=== PATIENT | female | born 1940 | race Caucasian/White ===

== ENCOUNTER 2017-07-15 09:43 | Inpatient (IN) | payer MEDICARE ==
[~2017-07-15] VITALS: Ht 157.5 cm; Wt 131.8 kg
[~2017-07-15 09:43] MED LIST: ALB0.5UD IH; ALLO100T15 PO; ASPI-611 PO; DICY10CA88 PO; DIPH25CA83 PO; ESTR0.5T PO; FURO-150 PO; GABA-338 PO; HYDR-569 PO; INSU100V12 SQ; INSU100V36 SQ; LEVO125T8 PO; LOPE-155 PO; LOSA25TA96 PO; METH500T4 PO; OMEP20CA10 PO; SIMV80TA2 PO; TRAM50TA2 PO; VIT1TABL50 PO
[2017-07-15] MEDS ORDERED: CefTRIAXone 2gm/D5W 50ml ADVTG 50 ML IV ONE (10:25)
[2017-07-15] MEDS ORDERED: ipratropium/albuterol 3ml nebule NEB ONE (10:25)
[2017-07-15 10:44] LABS: CLARITY,URINE SLIGHTLY CLOUDY (Clear); COLOR,URINE YELLOW (Yellow); GLUCOSE, URINE 100 mg/dl (Neg); KETONES,URINE NEGATIVE (Neg); LEUKOCYTE ESTERASE ,URINE NEGATIVE (Neg); NITRITES, URINE NEGATIVE (Neg); OCCULT BLOOD,URINE MODERATE (Neg); PROTEIN,URINE >=300 mg/dl (Neg)
[2017-07-15 10:45] LABS: UA COLLECTION TYPE CLN CATCH MIDSTREAM
[2017-07-15 10:50] LABS: BACTERIA,URINE FEW /HPF (Neg); MUCUS STRANDS FEW /LPF (Neg); RBC,URINE 0-2 /HPF (0-2); SQUAMOUS EPITHELIAL CELL,UR MANY /LPF (FEW); TRANSITIONAL EPI CELLS,URINE FEW /HPF; WBC,URINE 0-4 /HPF (0-4)
[2017-07-15] MEDS ORDERED: azithromycin 250mg tablet PO ONE (10:55)
[2017-07-15 11:06] LABS: BASOPHILS % (AUTO) 0.3 % (0-1); EOSINOPHILS % (AUTO) 0.4 % (0-6); HEMATOCRIT 30.7 % (35.0-45.0); HEMOGLOBIN 10.3 g/dl (12.0-16.0); LYMPHOCYTES # (AUTO) 0.9 X10'3 (1.1-4.8); LYMPHOCYTES % (AUTO) 22.7 % (21-51); MEAN CORPUSCULAR HEMOGLOBIN 33.3 PG (27.0-31.0); MEAN CORPUSCULAR HGB CONC 33.6 % (33.0-36.5); MEAN CORPUSCULAR VOLUME 99.2 FL (78-98); MONOCYTES # (AUTO) 0.3 X10'3 (0-0.9); MONOCYTES % (AUTO) 8.9 % (2-12); NEUTROPHILS # (AUTO) 2.6 X10'3 (1.8-7.7); NEUTROPHILS % (AUTO) 67.7 % (42-75); PLATELET COUNT 75 X10'3 (140-440); RED BLOOD COUNT 3.09 X10'6 (4.20-5.60); WHITE BLOOD COUNT 3.8 X10'3 (4.5-11.0)
[2017-07-15 11:20] LABS: ALANINE AMINOTRANSFERASE 67 U/L (12-78); ALBUMIN 2.4 G/DL (3.4-5.0); ALBUMIN/GLOBULIN RATIO 0.6 (1.1-1.5); ALKALINE PHOSPHATASE 121 IU/L (46-116); ANION GAP 6 (8-16); ASPARTATE AMINO TRANSFERASE 122 U/L (10-37); BILIRUBIN,TOTAL 1.4 MG/DL (0.1-1.0); BLOOD UREA NITROGEN 25 MG/DL (7-18); BUN/CREATININE RATIO 8.9 (6.6-38.0); CALCIUM 8.1 MG/DL (8.5-10.1); CHLORIDE 99 MMOL/L (99-107); CREATININE 2.81 MG/DL (0.40-0.90); GLUCOSE 101 MG/DL (70-104); MAGNESIUM 1.8 MG/DL (1.5-2.4); POTASSIUM 3.7 MMOL/L (3.5-5.1); SODIUM 134 MMOL/L (135-145); TOTAL PROTEIN 6.3 G/DL (6.4-8.2); eGFR 16 ML/MIN
[2017-07-15] MEDS ORDERED: dexamethasone sod phosphate 10mg/ml inj IV STA (12:30)
[2017-07-15] MEDS ORDERED: ondansetron/PF 4mg/2ml inj IV ONE (12:40)
[2017-07-15] MEDS ORDERED: morphine 5 MG/ML injection IV ONE (12:45)
[2017-07-15] MEDS ORDERED: acetaminophen 325mg tablet PO ONE (13:00)
[2017-07-15] MEDS ORDERED: ceftazidime 1000mg in D5W 50ml 50 ML IV SCH (14:00)
[2017-07-15] MEDS ORDERED: traMADol 50MG tablet PO PRN (14:00)
[2017-07-15] MEDS ORDERED: insulin Lispro (HumaLOG) vial - multi-dose SQ PRN (14:00)
[2017-07-15] MEDS ORDERED: dicyclomine 10 MG capsule PO PRN (14:00)
[2017-07-15] MEDS ORDERED: vancomycin/NS 1 GM ADD-VANTAGE 250 ML IV ONE (14:00)
[2017-07-15] MEDS ORDERED: HYDROcodone/acetaminophen 5mg/325mg tablet PO PRN (14:00)
[2017-07-15] MEDS: K, MAG and/or Phos replacement - Verify level? MC SCH (14:05)
[2017-07-15] MEDS ORDERED: sodium phosphate inj. 30 MMOL in dextrose 5%-water 250 ML IV PRN (14:05)
[2017-07-15] MEDS ORDERED: Neutra Phos packet PO PRN (14:05)
[2017-07-15] MEDS ORDERED: sodium phosphate inj. 15 MMOL in dextrose 5%-water 150 ML IV PRN (14:05)
[2017-07-15] MEDS ORDERED: magnesium 4gm in 100ml NS 100 ML IV PRN (14:05)
[2017-07-15] MEDS ORDERED: magnesium hydroxide 30ml (MOM) UD suspension PO PRN (14:05)
[2017-07-15] MEDS ORDERED: magnesium 2GM in 50ml NS 50 ML IV PRN (14:05)
[2017-07-15] MEDS ORDERED: magnesium Cl slow-release 64mg tablet PO PRN (14:05)
[2017-07-15] MEDS ORDERED: ipratropium/albuterol 3ml nebule NEB PRN (14:05)
[2017-07-15] MEDS ORDERED: potassium Cl 20 mEq SR tablet PO PRN ×2 (14:05)
[2017-07-15] MEDS: levoFLOXACIN 250mg tablet PO SCH (14:31)
[2017-07-15] MEDS ORDERED: cefTAZidime inj. 1 GM in normal saline 100ml IV soln 100 ML IV SCH (14:51)
[2017-07-15] MEDS ORDERED: oseltamivir phos 75mg capsule PO SCH (15:00)
[2017-07-15] MEDS ORDERED: normal saline 1000ml 250 ML IV PRN (15:12)
[2017-07-15] MEDS ORDERED: LIDOcaine 1% (10mg/ml) 2ml vial SQ ONE (15:15)
[2017-07-15] MEDS ORDERED: heparin 1,000 units/ml 10ml inj IV ONE (15:15)
[2017-07-15] MEDS: cefTAZidime inj. 1 GM in normal saline 100ml IV soln 100 ML IV SCH (16:19)
[2017-07-15] MEDS: HYDROcodone/acetaminophen 5mg/325mg tablet PO PRN ×2 (16:20→20:59)
[2017-07-15] MEDS: oseltamivir 30mg capsule PO SCH (17:29)
[2017-07-15] MEDS: gabapentin 300mg capsule PO SCH (20:58)
[2017-07-15] MEDS: heparin, porcine 5000 units/ml vial SQ SCH (21:04)
[2017-07-15 23:00] VITALS: BP 151/56
[2017-07-16] MEDS: HYDROcodone/acetaminophen 5mg/325mg tablet PO PRN ×4 (01:25→21:06)
[2017-07-16 03:00] VITALS: BP 144/86
[2017-07-16 05:56] LABS: HEMATOCRIT 28.3 % (35.0-45.0); HEMOGLOBIN 9.5 g/dl (12.0-16.0); MEAN CORPUSCULAR HEMOGLOBIN 33.4 PG (27.0-31.0); MEAN CORPUSCULAR HGB CONC 33.5 % (33.0-36.5); MEAN CORPUSCULAR VOLUME 99.7 FL (78-98); MEAN PLATELET VOLUME 8.3 FL (7.4-10.4); PLATELET COUNT 67 X10'3 (140-440); RED BLOOD COUNT 2.84 X10'6 (4.20-5.60); RED CELL DISTRIBUTION WIDTH 14.1 % (11.5-14.5); WHITE BLOOD COUNT 2.7 X10'3 (4.5-11.0)
[2017-07-16 06:00] VITALS: BP 115/62
[2017-07-16 06:12] LABS: INR 1.1 INR; PARTIAL THROMBOPLASTIN TIME 30 SECONDS (22-32); PROTHROMBIN TIME 11.5 SECONDS (9.0-12.0)
[2017-07-16 06:24] LABS: ALANINE AMINOTRANSFERASE 53 U/L (12-78); ALBUMIN 2.2 G/DL (3.4-5.0); ALBUMIN/GLOBULIN RATIO 0.6 (1.1-1.5); ALKALINE PHOSPHATASE 109 IU/L (46-116); ANION GAP 8 (8-16); ASPARTATE AMINO TRANSFERASE 82 U/L (10-37); BLOOD UREA NITROGEN 35 MG/DL (7-18); BUN/CREATININE RATIO 10.6 (6.6-38.0); CALCIUM 7.7 MG/DL (8.5-10.1); CHLORIDE 98 MMOL/L (99-107); GLUCOSE 175 MG/DL (70-104); PHOSPHORUS 4.8 MG/DL (2.3-4.5); POTASSIUM 4.2 MMOL/L (3.5-5.1); SODIUM 135 MMOL/L (135-145); TOTAL CARBON DIOXIDE 28.8 MMOL/L (24-32); eGFR 14 ML/MIN
[2017-07-16 07:09] LABS: HEMOGLOBIN A1C 5.8 % (4.5-6.2)
[2017-07-16 07:24] LABS: ANISOCYTOSIS 1+; PLATELET ESTIMATE DECREASED; TOTAL CELLS COUNTED 100
[2017-07-16] MEDS: K, MAG and/or Phos replacement - Verify level? MC SCH (08:00)
[2017-07-16] MEDS: cefTAZidime inj. 1 GM in normal saline 100ml IV soln 100 ML IV SCH (08:14)
[2017-07-16] MEDS: levoTHYROXINE 125mcg tablet PO SCH (08:15)
[2017-07-16] MEDS: gabapentin 300mg capsule PO SCH ×3 (08:15→21:06)
[2017-07-16] MEDS: pantoprazole 40mg Tablet.DR PO SCH (08:15)
[2017-07-16] MEDS: heparin, porcine 5000 units/ml vial SQ SCH ×2 (08:16→20:00)
[2017-07-16] MEDS ORDERED: LIDOcaine 1% (10mg/ml) 2ml vial SQ ONE (09:00)
[2017-07-16] MEDS ORDERED: heparin 1,000 units/ml 10ml inj IV ONE (09:00)
[2017-07-16] MEDS: ondansetron/PF 4mg/2ml inj IV PRN ×2 (10:04→16:34)
[2017-07-16 11:00] VITALS: BP 145/77
[2017-07-16 15:00] VITALS: BP 136/81
[2017-07-16] MEDS: oseltamivir 30mg capsule PO SCH (15:02)
[2017-07-16 16:27] LABS: CLARITY,URINE CLOUDY (Clear); GLUCOSE, URINE 250 mg/dl (Neg); KETONES,URINE TRACE mg/dl (Neg); LEUKOCYTE ESTERASE ,URINE NEGATIVE (Neg); NITRITES, URINE NEGATIVE (Neg); OCCULT BLOOD,URINE LARGE (Neg); PROTEIN,URINE >=300 mg/dl (Neg)
[2017-07-16 16:31] LABS: COLOR,URINE DARK YELLOW (Yellow); UA COLLECTION TYPE FOLEY CATH
[2017-07-16 16:40] LABS: BACTERIA,URINE FEW /HPF (Neg); RBC,URINE 50-100 /HPF (0-2); WBC,URINE 0-4 /HPF (0-4)
[2017-07-16 16:41] LABS: COARSE GRANULAR CAST 0-3 /LPF (NEGATIVE); HYALINE CASTS 0-3 /LPF (NEGATIVE); MUCUS STRANDS FEW /LPF (Neg); SQUAMOUS EPITHELIAL CELL,UR FEW /LPF (FEW); TRANSITIONAL EPI CELLS,URINE FEW /HPF
[2017-07-16 19:00] VITALS: BP 155/82
[2017-07-16] MEDS ORDERED: glucagon, human recombinant 1mg kit SUBCUT PRN (21:45)
[2017-07-16] MEDS ORDERED: dextrose ORAL solution 15 GM/59 ML bottle PO PRN ×2 (21:45)
[2017-07-16] MEDS ORDERED: dextrose 50%-water 50ml dispensing syringe IV PRN ×2 (21:45)
[2017-07-16] MEDS: Insulin Detemir pen SQ SCH (22:03)
[2017-07-16 23:00] VITALS: BP 132/60
[2017-07-17 03:00] VITALS: BP 109/63
[2017-07-17 05:30] VITALS: BP 124/58
[2017-07-17] MEDS: HYDROcodone/acetaminophen 5mg/325mg tablet PO PRN ×3 (05:35→17:06)
[2017-07-17 05:36] LABS: INR 1.1 INR; PARTIAL THROMBOPLASTIN TIME 27 SECONDS (22-32); PROTHROMBIN TIME 11.4 SECONDS (9.0-12.0)
[2017-07-17 05:40] LABS: BASOPHILS % (AUTO) 0.2 % (0-1); EOSINOPHILS % (AUTO) 0.9 % (0-6); HEMATOCRIT 27.9 % (35.0-45.0); HEMOGLOBIN 9.3 g/dl (12.0-16.0); LYMPHOCYTES % (AUTO) 22.7 % (21-51); MEAN CORPUSCULAR HEMOGLOBIN 33.3 PG (27.0-31.0); MEAN CORPUSCULAR HGB CONC 33.4 % (33.0-36.5); MEAN CORPUSCULAR VOLUME 99.9 FL (78-98); MEAN PLATELET VOLUME 8.4 FL (7.4-10.4); MONOCYTES # (AUTO) 0.4 X10'3 (0-0.9); MONOCYTES % (AUTO) 8.4 % (2-12); NEUTROPHILS % (AUTO) 67.8 % (42-75); PLATELET COUNT 76 X10'3 (140-440); RED BLOOD COUNT 2.79 X10'6 (4.20-5.60); RED CELL DISTRIBUTION WIDTH 14.5 % (11.5-14.5); WHITE BLOOD COUNT 4.4 X10'3 (4.5-11.0)
[2017-07-17 05:57] LABS: ALANINE AMINOTRANSFERASE 50 U/L (12-78); ALBUMIN 2.2 G/DL (3.4-5.0); ALBUMIN/GLOBULIN RATIO 0.6 (1.1-1.5); ALKALINE PHOSPHATASE 97 IU/L (46-116); ANION GAP 6 (8-16); ASPARTATE AMINO TRANSFERASE 62 U/L (10-37); BILIRUBIN,TOTAL 0.8 MG/DL (0.1-1.0); BLOOD UREA NITROGEN 29 MG/DL (7-18); BUN/CREATININE RATIO 10.4 (6.6-38.0); CALCIUM 7.7 MG/DL (8.5-10.1); CHLORIDE 100 MMOL/L (99-107); CREATININE 2.78 MG/DL (0.40-0.90); GLUCOSE 143 MG/DL (70-104); PHOSPHORUS 3.4 MG/DL (2.3-4.5); POTASSIUM 3.6 MMOL/L (3.5-5.1); SODIUM 138 MMOL/L (135-145); TOTAL CARBON DIOXIDE 31.7 MMOL/L (24-32); TOTAL PROTEIN 5.9 G/DL (6.4-8.2); eGFR 17 ML/MIN
[2017-07-17] MEDS: heparin, porcine 5000 units/ml vial SQ SCH ×2 (07:08→19:21)
[2017-07-17] MEDS: K, MAG and/or Phos replacement - Verify level? MC SCH (08:00)
[2017-07-17] MEDS: LACTOBACILLUS RHAMNOSUS GG 15 billion unit sprinkle caps PO SCH (09:35)
[2017-07-17] MEDS: gabapentin 300mg capsule PO SCH ×3 (09:35→21:14)
[2017-07-17] MEDS: pantoprazole 40mg Tablet.DR PO SCH (09:35)
[2017-07-17] MEDS: levoFLOXACIN 250mg tablet PO SCH (09:35)
[2017-07-17] MEDS: levoTHYROXINE 125mcg tablet PO SCH (09:35)
[2017-07-17] MEDS: oseltamivir 30mg capsule PO SCH (09:35)
[2017-07-17] MEDS: cefTAZidime inj. 1 GM in normal saline 100ml IV soln 100 ML IV SCH (09:36)
[2017-07-17] MEDS: emollient combination-Eucerin 250 ML LOTION TP SCH (09:40)
[2017-07-17 11:00] VITALS: BP 121/61
[2017-07-17] MEDS ORDERED: polyethylene glycol 3350 17gm powd pack PO PRN (14:05)
[2017-07-17 15:00] VITALS: BP 126/71
[2017-07-17 19:00] VITALS: BP 105/60
[2017-07-17] MEDS: benzonatate 100mg capsule PO PRN (19:25)
[2017-07-17] MEDS ORDERED: Insulin Detemir pen SQ SCH (21:00)
[2017-07-17] MEDS: Insulin Detemir pen SQ SCH (21:19)
[2017-07-17 23:00] VITALS: BP 113/55
[2017-07-18 03:00] VITALS: BP 144/77
[2017-07-18] MEDS: HYDROcodone/acetaminophen 5mg/325mg tablet PO PRN ×3 (03:24→16:18)
[2017-07-18 06:08] LABS: BASOPHILS % (AUTO) 0.2 % (0-1); EOSINOPHILS # (AUTO) 0.1 X10'3 (0-0.9); EOSINOPHILS % (AUTO) 0.9 % (0-6); HEMATOCRIT 29.7 % (35.0-45.0); HEMOGLOBIN 9.9 g/dl (12.0-16.0); LYMPHOCYTES # (AUTO) 1.4 X10'3 (1.1-4.8); LYMPHOCYTES % (AUTO) 26.5 % (21-51); MEAN CORPUSCULAR HEMOGLOBIN 33.4 PG (27.0-31.0); MEAN CORPUSCULAR HGB CONC 33.5 % (33.0-36.5); MEAN CORPUSCULAR VOLUME 99.7 FL (78-98); MEAN PLATELET VOLUME 8.3 FL (7.4-10.4); MONOCYTES # (AUTO) 0.5 X10'3 (0-0.9); MONOCYTES % (AUTO) 10.2 % (2-12); NEUTROPHILS # (AUTO) 3.3 X10'3 (1.8-7.7); NEUTROPHILS % (AUTO) 62.2 % (42-75); PLATELET COUNT 86 X10'3 (140-440); RED BLOOD COUNT 2.98 X10'6 (4.20-5.60); RED CELL DISTRIBUTION WIDTH 14.5 % (11.5-14.5); WHITE BLOOD COUNT 5.3 X10'3 (4.5-11.0)
[2017-07-18 06:26] LABS: ALANINE AMINOTRANSFERASE 62 U/L (12-78); ALBUMIN 2.2 G/DL (3.4-5.0); ALBUMIN/GLOBULIN RATIO 0.6 (1.1-1.5); ALKALINE PHOSPHATASE 100 IU/L (46-116); ANION GAP 4 (8-16); ASPARTATE AMINO TRANSFERASE 62 U/L (10-37); BILIRUBIN,TOTAL 0.8 MG/DL (0.1-1.0); BLOOD UREA NITROGEN 35 MG/DL (7-18); BUN/CREATININE RATIO 10.7 (6.6-38.0); CALCIUM 8.1 MG/DL (8.5-10.1); CHLORIDE 99 MMOL/L (99-107); CREATININE 3.28 MG/DL (0.40-0.90); GLUCOSE 142 MG/DL (70-104); INR 1.1 INR; PARTIAL THROMBOPLASTIN TIME 26 SECONDS (22-32); PHOSPHORUS 3.4 MG/DL (2.3-4.5); POTASSIUM 3.6 MMOL/L (3.5-5.1); PROTHROMBIN TIME 11.3 SECONDS (9.0-12.0); SODIUM 134 MMOL/L (135-145); TOTAL CARBON DIOXIDE 31.1 MMOL/L (24-32); TOTAL PROTEIN 6.1 G/DL (6.4-8.2); eGFR 14 ML/MIN
[2017-07-18 06:30] VITALS: BP 136/81
[2017-07-18] MEDS: oseltamivir 30mg capsule PO SCH (07:50)
[2017-07-18] MEDS: LACTOBACILLUS RHAMNOSUS GG 15 billion unit sprinkle caps PO SCH (07:50)
[2017-07-18] MEDS: pantoprazole 40mg Tablet.DR PO SCH (07:50)
[2017-07-18] MEDS: levoTHYROXINE 125mcg tablet PO SCH (07:50)
[2017-07-18] MEDS: gabapentin 300mg capsule PO SCH ×3 (07:50→21:22)
[2017-07-18] MEDS: emollient combination-Eucerin 250 ML LOTION TP SCH (07:53)
[2017-07-18] MEDS: K, MAG and/or Phos replacement - Verify level? MC SCH (08:00)
[2017-07-18] MEDS: heparin, porcine 5000 units/ml vial SQ SCH ×2 (08:00→19:36)
[2017-07-18] MEDS: insulin Lispro (HumaLOG) vial - multi-dose SQ SCH ×2 (10:05→19:28)
[2017-07-18 11:00] VITALS: BP 128/71
[2017-07-18 15:00] VITALS: BP 87/71
[2017-07-18 18:00] VITALS: BP 138/62
[2017-07-18] MEDS: Insulin Detemir pen SQ SCH (21:33)
[2017-07-18 23:00] VITALS: BP 119/59
[2017-07-19] MEDS: HYDROcodone/acetaminophen 5mg/325mg tablet PO PRN ×4 (00:53→22:49)
[2017-07-19 03:39] VITALS: BP 138/71
[2017-07-19 06:26] LABS: BASOPHILS % (AUTO) 0.2 % (0-1); EOSINOPHILS # (AUTO) 0.1 X10'3 (0-0.9); HEMATOCRIT 31.6 % (35.0-45.0); HEMOGLOBIN 10.5 g/dl (12.0-16.0); LYMPHOCYTES # (AUTO) 1.6 X10'3 (1.1-4.8); LYMPHOCYTES % (AUTO) 27.6 % (21-51); MEAN CORPUSCULAR HEMOGLOBIN 33.3 PG (27.0-31.0); MEAN CORPUSCULAR HGB CONC 33.2 % (33.0-36.5); MEAN CORPUSCULAR VOLUME 100.1 FL (78-98); MEAN PLATELET VOLUME 8.8 FL (7.4-10.4); MONOCYTES # (AUTO) 0.6 X10'3 (0-0.9); NEUTROPHILS # (AUTO) 3.5 X10'3 (1.8-7.7); NEUTROPHILS % (AUTO) 60.2 % (42-75); PLATELET COUNT 99 X10'3 (140-440); RED BLOOD COUNT 3.15 X10'6 (4.20-5.60); RED CELL DISTRIBUTION WIDTH 14.5 % (11.5-14.5); WHITE BLOOD COUNT 5.7 X10'3 (4.5-11.0)
[2017-07-19 06:30] VITALS: BP 141/59
[2017-07-19 06:36] LABS: INR 1.1 INR; PARTIAL THROMBOPLASTIN TIME 26 SECONDS (22-32); PROTHROMBIN TIME 11.2 SECONDS (9.0-12.0)
[2017-07-19 06:48] LABS: ALANINE AMINOTRANSFERASE 52 U/L (12-78); ALBUMIN 2.4 G/DL (3.4-5.0); ALBUMIN/GLOBULIN RATIO 0.6 (1.1-1.5); ALKALINE PHOSPHATASE 102 IU/L (46-116); ANION GAP 7 (8-16); ASPARTATE AMINO TRANSFERASE 54 U/L (10-37); BLOOD UREA NITROGEN 39 MG/DL (7-18); BUN/CREATININE RATIO 10.2 (6.6-38.0); CALCIUM 8.1 MG/DL (8.5-10.1); CHLORIDE 95 MMOL/L (99-107); CREATININE 3.81 MG/DL (0.40-0.90); GLUCOSE 132 MG/DL (70-104); PHOSPHORUS 3.4 MG/DL (2.3-4.5); POTASSIUM 3.7 MMOL/L (3.5-5.1); SODIUM 131 MMOL/L (135-145); TOTAL CARBON DIOXIDE 29.2 MMOL/L (24-32); TOTAL PROTEIN 6.4 G/DL (6.4-8.2); eGFR 11 ML/MIN
[2017-07-19] MEDS: heparin, porcine 5000 units/ml vial SQ SCH ×2 (08:00→22:50)
[2017-07-19] MEDS: K, MAG and/or Phos replacement - Verify level? MC SCH (08:00)
[2017-07-19] MEDS: LACTOBACILLUS RHAMNOSUS GG 15 billion unit sprinkle caps PO SCH (08:11)
[2017-07-19] MEDS: levoFLOXACIN 250mg tablet PO SCH (08:11)
[2017-07-19] MEDS: pantoprazole 40mg Tablet.DR PO SCH (08:11)
[2017-07-19] MEDS: oseltamivir 30mg capsule PO SCH (08:11)
[2017-07-19] MEDS: gabapentin 300mg capsule PO SCH ×3 (08:11→22:49)
[2017-07-19] MEDS: levoTHYROXINE 125mcg tablet PO SCH (08:11)
[2017-07-19] MEDS: emollient combination-Eucerin 250 ML LOTION TP SCH (08:36)
[2017-07-19] MEDS: insulin Lispro (HumaLOG) vial - multi-dose SQ SCH ×2 (08:39→14:47)
[2017-07-19 11:00] VITALS: BP 126/70
[2017-07-19] MEDS ORDERED: normal saline 1000ml 250 ML IV PRN (11:06)
[2017-07-19] MEDS ORDERED: heparin 1,000 units/ml 10ml inj IV ONE (11:10)
[2017-07-19] MEDS ORDERED: LIDOcaine 1% (10mg/ml) 2ml vial SQ ONE (11:10)
[2017-07-19 15:00] VITALS: BP 147/76
[2017-07-19 18:00] VITALS: BP 133/68
[2017-07-19] MEDS: benzonatate 100mg capsule PO PRN (19:21)
[2017-07-19] MEDS ORDERED: LORazepam 2 mg/ml vial IV ONE (22:25)
[2017-07-19] MEDS: Insulin Detemir pen SQ SCH (22:48)
[2017-07-19 23:00] VITALS: BP 139/67
[2017-07-20 05:45] LABS: BASOPHILS % (AUTO) 0.2 % (0-1); EOSINOPHILS # (AUTO) 0.1 X10'3 (0-0.9); EOSINOPHILS % (AUTO) 2.7 % (0-6); HEMATOCRIT 28.8 % (35.0-45.0); HEMOGLOBIN 9.7 g/dl (12.0-16.0); LYMPHOCYTES # (AUTO) 1.3 X10'3 (1.1-4.8); LYMPHOCYTES % (AUTO) 27.6 % (21-51); MEAN CORPUSCULAR HEMOGLOBIN 33.5 PG (27.0-31.0); MEAN CORPUSCULAR HGB CONC 33.7 % (33.0-36.5); MEAN CORPUSCULAR VOLUME 99.7 FL (78-98); MEAN PLATELET VOLUME 8.2 FL (7.4-10.4); MONOCYTES # (AUTO) 0.5 X10'3 (0-0.9); MONOCYTES % (AUTO) 11.8 % (2-12); NEUTROPHILS # (AUTO) 2.7 X10'3 (1.8-7.7); NEUTROPHILS % (AUTO) 57.7 % (42-75); PLATELET COUNT 87 X10'3 (140-440); RED BLOOD COUNT 2.89 X10'6 (4.20-5.60); RED CELL DISTRIBUTION WIDTH 14.4 % (11.5-14.5); WHITE BLOOD COUNT 4.6 X10'3 (4.5-11.0)
[2017-07-20 06:04] LABS: INR 1.1 INR; PARTIAL THROMBOPLASTIN TIME 27 SECONDS (22-32); PROTHROMBIN TIME 11.5 SECONDS (9.0-12.0)
[2017-07-20 06:09] LABS: ALANINE AMINOTRANSFERASE 44 U/L (12-78); ALBUMIN 2.1 G/DL (3.4-5.0); ALBUMIN/GLOBULIN RATIO 0.6 (1.1-1.5); ALKALINE PHOSPHATASE 85 IU/L (46-116); ANION GAP 2 (8-16); ASPARTATE AMINO TRANSFERASE 39 U/L (10-37); BLOOD UREA NITROGEN 24 MG/DL (7-18); BUN/CREATININE RATIO 8.2 (6.6-38.0); CALCIUM 7.8 MG/DL (8.5-10.1); CHLORIDE 99 MMOL/L (99-107); CREATININE 2.93 MG/DL (0.40-0.90); GLUCOSE 110 MG/DL (70-104); PHOSPHORUS 2.8 MG/DL (2.3-4.5); POTASSIUM 4.1 MMOL/L (3.5-5.1); SODIUM 134 MMOL/L (135-145); TOTAL CARBON DIOXIDE 32.8 MMOL/L (24-32); TOTAL PROTEIN 5.6 G/DL (6.4-8.2); eGFR 16 ML/MIN
[2017-07-20 07:17] VITALS: BP 130/59
[2017-07-20] MEDS: heparin, porcine 5000 units/ml vial SQ SCH ×2 (07:43→22:02)
[2017-07-20] MEDS: K, MAG and/or Phos replacement - Verify level? MC SCH (08:00)
[2017-07-20] MEDS: emollient combination-Eucerin 250 ML LOTION TP SCH (08:38)
[2017-07-20] MEDS: LACTOBACILLUS RHAMNOSUS GG 15 billion unit sprinkle caps PO SCH (08:39)
[2017-07-20] MEDS: pantoprazole 40mg Tablet.DR PO SCH (08:39)
[2017-07-20] MEDS: gabapentin 300mg capsule PO SCH ×3 (08:39→22:01)
[2017-07-20] MEDS: levoTHYROXINE 125mcg tablet PO SCH (08:39)
[2017-07-20] MEDS: oseltamivir 30mg capsule PO SCH (08:39)
[2017-07-20] MEDS: benzonatate 100mg capsule PO PRN ×2 (09:54→19:05)
[2017-07-20] MEDS: insulin Lispro (HumaLOG) vial - multi-dose SQ SCH ×3 (10:02→19:10)
[2017-07-20] MEDS: HYDROcodone/acetaminophen 5mg/325mg tablet PO PRN ×3 (10:08→22:02)
[2017-07-20 11:55] VITALS: BP 103/52
[2017-07-20 16:39] VITALS: BP 154/93
[2017-07-20 18:30] VITALS: BP 144/65
[2017-07-20 22:00] VITALS: BP 137/79
[2017-07-20] MEDS: Insulin Detemir pen SQ SCH (22:40)
[2017-07-21 02:00] VITALS: BP 118/50
[2017-07-21] MEDS: benzonatate 100mg capsule PO PRN ×2 (02:47→21:57)
[2017-07-21] MEDS: HYDROcodone/acetaminophen 5mg/325mg tablet PO PRN ×2 (02:47→11:25)
[2017-07-21 06:00] VITALS: BP 94/52
[2017-07-21 06:14] LABS: BASOPHILS % (AUTO) 0.3 % (0-1); EOSINOPHILS # (AUTO) 0.2 X10'3 (0-0.9); EOSINOPHILS % (AUTO) 2.6 % (0-6); HEMATOCRIT 28.4 % (35.0-45.0); HEMOGLOBIN 9.5 g/dl (12.0-16.0); LYMPHOCYTES # (AUTO) 1.4 X10'3 (1.1-4.8); LYMPHOCYTES % (AUTO) 23.9 % (21-51); MEAN CORPUSCULAR HEMOGLOBIN 33.5 PG (27.0-31.0); MEAN CORPUSCULAR HGB CONC 33.5 % (33.0-36.5); MEAN PLATELET VOLUME 8.2 FL (7.4-10.4); MONOCYTES # (AUTO) 0.7 X10'3 (0-0.9); MONOCYTES % (AUTO) 12.4 % (2-12); NEUTROPHILS # (AUTO) 3.6 X10'3 (1.8-7.7); NEUTROPHILS % (AUTO) 60.8 % (42-75); PLATELET COUNT 101 X10'3 (140-440); RED BLOOD COUNT 2.84 X10'6 (4.20-5.60); RED CELL DISTRIBUTION WIDTH 15.1 % (11.5-14.5); WHITE BLOOD COUNT 5.9 X10'3 (4.5-11.0)
[2017-07-21 06:20] LABS: INR 1.1 INR; PARTIAL THROMBOPLASTIN TIME 27 SECONDS (22-32)
[2017-07-21 06:24] LABS: ALANINE AMINOTRANSFERASE 38 U/L (12-78); ALBUMIN 2.2 G/DL (3.4-5.0); ALBUMIN/GLOBULIN RATIO 0.6 (1.1-1.5); ALKALINE PHOSPHATASE 87 IU/L (46-116); ANION GAP 1 (8-16); ASPARTATE AMINO TRANSFERASE 35 U/L (10-37); BLOOD UREA NITROGEN 31 MG/DL (7-18); BUN/CREATININE RATIO 9.4 (6.6-38.0); CHLORIDE 97 MMOL/L (99-107); GLUCOSE 129 MG/DL (70-104); MAGNESIUM 2.1 MG/DL (1.5-2.4); PHOSPHORUS 2.9 MG/DL (2.3-4.5); SODIUM 130 MMOL/L (135-145); TOTAL CARBON DIOXIDE 31.7 MMOL/L (24-32); TOTAL PROTEIN 5.7 G/DL (6.4-8.2); eGFR 14 ML/MIN
[2017-07-21] MEDS ORDERED: heparin 1,000unit/ml 10ml vial 10 ML IV ONE (06:32)
[2017-07-21] MEDS ORDERED: albumin (human) 25% 100ml IV 100 ML IV PRN (06:35)
[2017-07-21] MEDS ORDERED: heparin 1,000 units/ml 10ml inj IV ONE (06:35)
[2017-07-21] MEDS ORDERED: epoetin 20,000 units/ml inj IV ONE (06:35)
[2017-07-21] MEDS: levoFLOXACIN 250mg tablet PO SCH (07:12)
[2017-07-21] MEDS: LACTOBACILLUS RHAMNOSUS GG 15 billion unit sprinkle caps PO SCH (07:12)
[2017-07-21] MEDS: levoTHYROXINE 125mcg tablet PO SCH (07:12)
[2017-07-21] MEDS: gabapentin 300mg capsule PO SCH ×3 (07:12→21:03)
[2017-07-21] MEDS: oseltamivir 30mg capsule PO SCH (07:13)
[2017-07-21] MEDS: emollient combination-Eucerin 250 ML LOTION TP SCH (07:14)
[2017-07-21] MEDS: pantoprazole 40mg Tablet.DR PO SCH (07:14)
[2017-07-21] MEDS: K, MAG and/or Phos replacement - Verify level? MC SCH (07:15)
[2017-07-21] MEDS: heparin, porcine 5000 units/ml vial SQ SCH ×2 (07:15→19:39)
[2017-07-21] MEDS: insulin Lispro (HumaLOG) vial - multi-dose SQ SCH ×2 (08:34→18:35)
[2017-07-21] MEDS ORDERED: LIDOcaine 1% 30ml vial SQ ONE (09:00)
[2017-07-21] MEDS ORDERED: LIDOcaine 1% (10mg/ml) 2ml vial SQ ONE (09:20)
[2017-07-21 11:00] VITALS: BP 126/91
[2017-07-21] MEDS ORDERED: LORazepam 1 MG tablet PO ONE (11:40)
[2017-07-21 15:00] VITALS: BP 121/88
[2017-07-21 18:30] VITALS: BP 138/62
[2017-07-21] MEDS: Insulin Detemir pen SQ SCH (21:02)
[2017-07-21] MEDS: LORazepam 1 MG tablet PO PRN (21:57)
[2017-07-21 23:56] VITALS: BP 144/77
[2017-07-22] MEDS ORDERED: LORazepam 2 mg/ml vial IM PRN (01:15)
[2017-07-22 02:30] VITALS: BP 102/49
[2017-07-22 06:00] VITALS: BP 120/66
[2017-07-22 06:52] LABS: ALANINE AMINOTRANSFERASE 39 U/L (12-78); ALBUMIN 2.2 G/DL (3.4-5.0); ALBUMIN/GLOBULIN RATIO 0.6 (1.1-1.5); ALKALINE PHOSPHATASE 91 IU/L (46-116); ASPARTATE AMINO TRANSFERASE 37 U/L (10-37); BILIRUBIN,TOTAL 1.1 MG/DL (0.1-1.0); BLOOD UREA NITROGEN 19 MG/DL (7-18); BUN/CREATININE RATIO 7.6 (6.6-38.0); CALCIUM 8.1 MG/DL (8.5-10.1); GLUCOSE 142 MG/DL (70-104); PHOSPHORUS 2.7 MG/DL (2.3-4.5); TOTAL CARBON DIOXIDE 29.3 MMOL/L (24-32); eGFR 19 ML/MIN
[2017-07-22] MEDS: pantoprazole 40mg Tablet.DR PO SCH (07:44)
[2017-07-22] MEDS: HYDROcodone/acetaminophen 5mg/325mg tablet PO PRN ×3 (07:44→23:10)
[2017-07-22] MEDS: levoTHYROXINE 125mcg tablet PO SCH (07:44)
[2017-07-22] MEDS: gabapentin 300mg capsule PO SCH ×3 (07:44→22:44)
[2017-07-22] MEDS: LACTOBACILLUS RHAMNOSUS GG 15 billion unit sprinkle caps PO SCH (07:44)
[2017-07-22] MEDS: heparin, porcine 5000 units/ml vial SQ SCH ×3 (07:44→22:49)
[2017-07-22] MEDS: emollient combination-Eucerin 250 ML LOTION TP SCH (07:45)
[2017-07-22] MEDS: benzonatate 100mg capsule PO PRN ×2 (07:48→23:06)
[2017-07-22] MEDS: K, MAG and/or Phos replacement - Verify level? MC SCH (08:00)
[2017-07-22] MEDS: LORazepam 1 MG tablet PO PRN (08:49)
[2017-07-22] MEDS: insulin Lispro (HumaLOG) vial - multi-dose SQ SCH ×3 (08:51→20:13)
[2017-07-22 11:00] VITALS: BP 107/80
[2017-07-22 12:40] LABS: ANION GAP 3 (8-16); CHLORIDE 99 MMOL/L (99-107); POTASSIUM 4.1 MMOL/L (3.5-5.1); SODIUM 134 MMOL/L (135-145); TOTAL CARBON DIOXIDE 31.6 MMOL/L (24-32)
[2017-07-22 13:49] LABS: BASOPHILS # (AUTO) 0.1 X10'3 (0-0.2); BASOPHILS % (AUTO) 0.8 % (0-1); EOSINOPHILS # (AUTO) 0.2 X10'3 (0-0.9); EOSINOPHILS % (AUTO) 2.8 % (0-6); HEMATOCRIT 31.3 % (35.0-45.0); HEMOGLOBIN 10.3 g/dl (12.0-16.0); LYMPHOCYTES # (AUTO) 1.3 X10'3 (1.1-4.8); LYMPHOCYTES % (AUTO) 19.4 % (21-51); MEAN CORPUSCULAR HEMOGLOBIN 33.6 PG (27.0-31.0); MEAN CORPUSCULAR VOLUME 101.6 FL (78-98); MEAN PLATELET VOLUME 8.1 FL (7.4-10.4); MONOCYTES # (AUTO) 0.8 X10'3 (0-0.9); MONOCYTES % (AUTO) 12.8 % (2-12); NEUTROPHILS # (AUTO) 4.2 X10'3 (1.8-7.7); NEUTROPHILS % (AUTO) 64.2 % (42-75); PLATELET COUNT 110 X10'3 (140-440); RED BLOOD COUNT 3.08 X10'6 (4.20-5.60); RED CELL DISTRIBUTION WIDTH 15.3 % (11.5-14.5); WHITE BLOOD COUNT 6.6 X10'3 (4.5-11.0)
[2017-07-22 14:00] LABS: PARTIAL THROMBOPLASTIN TIME 26 SECONDS (22-32); PROTHROMBIN TIME 10.7 SECONDS (9.0-12.0)
[2017-07-22 14:38] LABS: PLATELET ESTIMATE DECREASED; POLYCHROMASIA FEW; SCHISTOCYTES FEW
[2017-07-22 15:00] VITALS: BP 137/57
[2017-07-22 18:00] VITALS: BP 147/75
[2017-07-22 23:00] VITALS: BP 139/76
[2017-07-22] MEDS: Insulin Detemir pen SQ SCH (23:01)
[2017-07-23 03:00] VITALS: BP 123/64
[2017-07-23 06:00] VITALS: BP 140/78
[2017-07-23 06:38] LABS: PARTIAL THROMBOPLASTIN TIME 27 SECONDS (22-32); PROTHROMBIN TIME 10.7 SECONDS (9.0-12.0)
[2017-07-23 06:46] LABS: ALANINE AMINOTRANSFERASE 39 U/L (12-78); ALBUMIN 2.4 G/DL (3.4-5.0); ALBUMIN/GLOBULIN RATIO 0.6 (1.1-1.5); ALKALINE PHOSPHATASE 98 IU/L (46-116); ANION GAP 5 (8-16); ASPARTATE AMINO TRANSFERASE 38 U/L (10-37); BILIRUBIN,TOTAL 1.1 MG/DL (0.1-1.0); BLOOD UREA NITROGEN 25 MG/DL (7-18); BUN/CREATININE RATIO 7.4 (6.6-38.0); CALCIUM 8.5 MG/DL (8.5-10.1); CHLORIDE 95 MMOL/L (99-107); GLUCOSE 143 MG/DL (70-104); MAGNESIUM 2.1 MG/DL (1.5-2.4); PHOSPHORUS 3.1 MG/DL (2.3-4.5); POTASSIUM 3.9 MMOL/L (3.5-5.1); SODIUM 133 MMOL/L (135-145); TOTAL CARBON DIOXIDE 32.6 MMOL/L (24-32); TOTAL PROTEIN 6.4 G/DL (6.4-8.2); eGFR 13 ML/MIN
[2017-07-23 06:56] LABS: BASOPHILS % (AUTO) 0.4 % (0-1); EOSINOPHILS # (AUTO) 0.1 X10'3 (0-0.9); EOSINOPHILS % (AUTO) 2.6 % (0-6); HEMOGLOBIN 10.4 g/dl (12.0-16.0); LYMPHOCYTES # (AUTO) 1.3 X10'3 (1.1-4.8); LYMPHOCYTES % (AUTO) 22.4 % (21-51); MEAN CORPUSCULAR HEMOGLOBIN 34.8 PG (27.0-31.0); MEAN CORPUSCULAR HGB CONC 34.7 % (33.0-36.5); MEAN CORPUSCULAR VOLUME 100.4 FL (78-98); MEAN PLATELET VOLUME 8.4 FL (7.4-10.4); MONOCYTES # (AUTO) 0.7 X10'3 (0-0.9); MONOCYTES % (AUTO) 12.9 % (2-12); NEUTROPHILS # (AUTO) 3.6 X10'3 (1.8-7.7); NEUTROPHILS % (AUTO) 61.7 % (42-75); PLATELET COUNT 96 X10'3 (140-440); RED BLOOD COUNT 2.99 X10'6 (4.20-5.60); RED CELL DISTRIBUTION WIDTH 14.1 % (11.5-14.5); WHITE BLOOD COUNT 5.7 X10'3 (4.5-11.0)
[2017-07-23] MEDS: gabapentin 300mg capsule PO SCH ×2 (07:11→13:14)
[2017-07-23] MEDS: LACTOBACILLUS RHAMNOSUS GG 15 billion unit sprinkle caps PO SCH (07:11)
[2017-07-23] MEDS: heparin, porcine 5000 units/ml vial SQ SCH (07:12)
[2017-07-23] MEDS: pantoprazole 40mg Tablet.DR PO SCH (07:12)
[2017-07-23] MEDS: levoFLOXACIN 250mg tablet PO SCH (07:12)
[2017-07-23] MEDS: levoTHYROXINE 125mcg tablet PO SCH (07:12)
[2017-07-23] MEDS: benzonatate 100mg capsule PO PRN (07:12)
[2017-07-23] MEDS: emollient combination-Eucerin 250 ML LOTION TP SCH (07:17)
[2017-07-23] MEDS: K, MAG and/or Phos replacement - Verify level? MC SCH (07:18)
[2017-07-23] MEDS: HYDROcodone/acetaminophen 5mg/325mg tablet PO PRN ×2 (07:58→13:14)
[2017-07-23] MEDS: insulin Lispro (HumaLOG) vial - multi-dose SQ SCH ×2 (08:13→13:17)
[2017-07-23] MEDS: LORazepam 1 MG tablet PO PRN (08:16)
[2017-07-23 11:00] VITALS: BP 140/78
== END 2017-07-23 13:36 | DRG 193 ==
LOC: ER 09:44 → ED HOLD 14:05 → PCU 3S 19:10 → CMPBEDREQ 19:53
PROVIDERS: ADMIT Internal Medicine Critical Care Medicine; ATTEND Internal Medicine Critical Care Medicine
PROC: 5A1D70Z Performance of Urinary Filtration, Intermittent, Less than 6 Hours Per Day (ICD-10-PCS; principal; 2017-07-16)
PROC: 5A1D70Z Performance of Urinary Filtration, Intermittent, Less than 6 Hours Per Day (ICD-10-PCS; 2017-07-19)
PROC: 5A1D70Z Performance of Urinary Filtration, Intermittent, Less than 6 Hours Per Day (ICD-10-PCS; 2017-07-21)
DX: J10.08 Influenza due to other identified influenza virus with other specified pneumonia (principal); N18.6 End stage renal disease; I13.2 Hypertensive heart and chronic kidney disease with heart failure and with stage 5 chronic kidney disease, or end stage renal disease; E11.22 Type 2 diabetes mellitus with diabetic chronic kidney disease; E66.01 Morbid (severe) obesity due to excess calories; Z68.43 Body mass index [BMI] 50.0-59.9, adult; J18.1 Lobar pneumonia, unspecified organism; I50.9 Heart failure, unspecified; G89.29 Other chronic pain; E78.00 Pure hypercholesterolemia, unspecified; K21.9 Gastro-esophageal reflux disease without esophagitis; S40.029A Contusion of unspecified upper arm, initial encounter; S81.801A Unspecified open wound, right lower leg, initial encounter; Z99.2 Dependence on renal dialysis; Z90.49 Acquired absence of other specified parts of digestive tract; Z88.1 Allergy status to other antibiotic agents; Z88.5 Allergy status to narcotic agent; Z88.2 Allergy status to sulfonamides; Z91.018 Allergy to other foods; Z88.8 Allergy status to other drugs, medicaments and biological substances; Z79.4 Long term (current) use of insulin; Z79.82 Long term (current) use of aspirin; Z75.1 Person awaiting admission to adequate facility elsewhere
CPT/HCPCS: 36415; 51702; 71045; 80051; 80053; 81001; 82948; 83036; 83605; 83735; 84100; 84145; 84443; 85025; 85610; 85730; 87040; 87070; 87502; 87503; 93005; 94640; 94668; 94760; 96365; 96375; 97110; 97116; 97162; 97530; 99285; A6196; A6213; A6223; A6250; A6253; A6402; A6446; A6449; C1758; G0257; G9035; J0696; J0713; J0885; J1100; J1644; J2060; J2270; J2405; J3370; J3490; J7030

== ENCOUNTER 2017-08-31 09:35 | Inpatient (IN) | payer MEDICARE ==
[~2017-08-31] VITALS: Ht 162.6 cm; Wt 144.2 kg
[~2017-08-31 09:35] MED LIST changes: -DIPH25CA83 PO; -FURO-150 PO; -METH500T4 PO; -OMEP20CA10 PO; -SIMV80TA2 PO
[2017-08-31] MEDS ORDERED: normal saline 1000ML IV soln IVB ONE (09:55)
[2017-08-31 11:03] LABS: COLOR,URINE Yellow (Yellow); GLUCOSE, URINE Negative (Neg); KETONES,URINE Trace mg/dl (Neg); LEUKOCYTE ESTERASE ,URINE Moderate (Neg); NITRITES, URINE Negative (Neg); OCCULT BLOOD,URINE Trace (Neg); PH,URINE 6.5 (4.8-8.0); PROTEIN,URINE 300 mg/dl (Neg); UROBILINOGEN,URINE 0.2 E.U/dL (0.2-1.0)
[2017-08-31 11:07] LABS: CLARITY,URINE SLIGHTLY CLOUDY (Clear); UA COLLECTION TYPE FOLEY CATH
[2017-08-31 11:31] LABS: RBC,URINE 0-2 /HPF (0-2); WBC,URINE 50-100 /HPF (0-4)
[2017-08-31 11:32] LABS: BACTERIA,URINE FEW /HPF (Neg); MUCUS STRANDS FEW /LPF (Neg); SQUAMOUS EPITHELIAL CELL,UR MODERATE /LPF (FEW); TRANSITIONAL EPI CELLS,URINE FEW /HPF; WBC CLUMPS,URINE MANY /HPF (NEGATIVE)
[2017-08-31 11:34] LABS: YEAST MANY /HPF (NEGATIVE)
[2017-08-31] MEDS ORDERED: meropenem inj 500 MG in normal saline 100ml IV soln 100 ML IV ONE (12:35)
[2017-08-31] MEDS ORDERED: LORazepam 2 mg/ml vial IV ONE (13:30)
[2017-08-31] MEDS ORDERED: acetaminophen 325mg tablet PO PRN ×2 (13:40)
[2017-08-31 14:17] LABS: BASOPHILS % (AUTO) 0.2 % (0-1); EOSINOPHILS # (AUTO) 0.1 X10'3 (0-0.9); EOSINOPHILS % (AUTO) 1.4 % (0-6); HEMATOCRIT 31.5 % (35.0-45.0); HEMOGLOBIN 10.8 g/dl (12.0-16.0); LYMPHOCYTES # (AUTO) 0.7 X10'3 (1.1-4.8); LYMPHOCYTES % (AUTO) 11.8 % (21-51); MEAN CORPUSCULAR HEMOGLOBIN 33.2 PG (27.0-31.0); MEAN CORPUSCULAR HGB CONC 34.3 % (33.0-36.5); MEAN CORPUSCULAR VOLUME 96.9 FL (78-98); MONOCYTES # (AUTO) 0.4 X10'3 (0-0.9); MONOCYTES % (AUTO) 6.2 % (2-12); NEUTROPHILS # (AUTO) 4.9 X10'3 (1.8-7.7); NEUTROPHILS % (AUTO) 80.4 % (42-75); PLATELET COUNT 159 X10'3 (140-440); RED BLOOD COUNT 3.25 X10'6 (4.20-5.60); RED CELL DISTRIBUTION WIDTH 17.2 % (11.5-14.5); WHITE BLOOD COUNT 6.1 X10'3 (4.5-11.0)
[2017-08-31 14:19] LABS: INR 1.1 INR; PARTIAL THROMBOPLASTIN TIME 28 SECONDS (22-32); PROTHROMBIN TIME 11.2 SECONDS (9.0-12.0)
[2017-08-31 14:27] LABS: LACTIC SEPSIS 2.2 MMOL/L (0.4-2.0)
[2017-08-31 14:34] LABS: ALANINE AMINOTRANSFERASE 31 U/L (12-78); ALBUMIN 2.3 G/DL (3.4-5.0); ALBUMIN/GLOBULIN RATIO 0.5 (1.1-1.5); ALKALINE PHOSPHATASE 139 IU/L (46-116); ANION GAP 9 (8-16); ASPARTATE AMINO TRANSFERASE 54 U/L (10-37); BILIRUBIN,TOTAL 1.6 MG/DL (0.1-1.0); BLOOD UREA NITROGEN 38 MG/DL (7-18); BUN/CREATININE RATIO 9.8 (6.6-38.0); CALCIUM 9.2 MG/DL (8.5-10.1); CHLORIDE 100 MMOL/L (99-107); CREATININE 3.88 MG/DL (0.40-0.90); GLUCOSE 173 MG/DL (70-104); MAGNESIUM 2.1 MG/DL (1.5-2.4); POTASSIUM 3.8 MMOL/L (3.5-5.1); SODIUM 138 MMOL/L (135-145); TOTAL CARBON DIOXIDE 29.1 MMOL/L (24-32); TOTAL PROTEIN 7.1 G/DL (6.4-8.2); eGFR 11 ML/MIN
[2017-08-31] MEDS: pantoprazole 40 MG vial IV SCH (14:48)
[2017-08-31] MEDS: vancomycin/NS 1 GM ADD-VANTAGE 250 ML IV SCH ×2 (15:01→22:24)
[2017-08-31 15:31] LABS: ABG BASE EXCESS 3.3 mmol/L (-2.0-3.0); ABG HCO3 26.8 mmol/L (22.0-26.0); ABG OXYGEN SATURATION 94.8 % (95-98); ABG PCO2 (T) 37.1 mmHg (32.0-45.0); ABG PH (T) 7.477 (7.350-7.450); ABG PO2 (T) 72.2 mmHg (83-108); ALLEN'S TEST Positive; FCOHb 1.5 % (0.5-1.5); FMetHb 0.1 % (0.3-1.12); FO2Hb 93.3 % (94-100); TOTAL HEMOGLOBIN 13.5 G/dl (12.0-16.0)
[2017-08-31] MEDS: heparin, porcine 5000 units/ml vial SQ SCH (16:00)
[2017-08-31 19:00] VITALS: BP 109/57
[2017-08-31 19:16] LABS: OXYGEN SATURATION (MIXED VEN) 85.2 % (60-80); PO2 MIXED VENOUS (TEMP COR) 42.5 mmHg (35-46)
[2017-08-31 20:00] VITALS: BP 140/64
[2017-08-31] MEDS ORDERED: vancomycin/NS 1 GM ADD-VANTAGE 250 ML IV SCH (20:00)
[2017-08-31 21:00] VITALS: BP 137/63
[2017-08-31 22:00] VITALS: BP 118/63
[2017-08-31] MEDS ORDERED: vancomycin/NS 1 GM ADD-VANTAGE 250 ML X 1 DOSE IV ONE (22:00)
[2017-08-31 23:00] VITALS: BP 140/71
[2017-09-01] VITALS (13 sets, daily range): BP systolic 100–172; BP diastolic 45–80
[2017-09-01] MEDS: heparin, porcine 5000 units/ml vial SQ SCH ×3 (01:12→16:47)
[2017-09-01] MEDS: VANCOMYCIN LEVEL IV SCH (03:00)
[2017-09-01 03:13] LABS: BASOPHILS % (AUTO) 0.2 % (0-1); EOSINOPHILS # (AUTO) 0.2 X10'3 (0-0.9); EOSINOPHILS % (AUTO) 3.4 % (0-6); HEMATOCRIT 26.8 % (35.0-45.0); HEMOGLOBIN 9.1 g/dl (12.0-16.0); LYMPHOCYTES # (AUTO) 0.8 X10'3 (1.1-4.8); MEAN CORPUSCULAR HEMOGLOBIN 33.1 PG (27.0-31.0); MEAN CORPUSCULAR HGB CONC 33.9 % (33.0-36.5); MEAN CORPUSCULAR VOLUME 97.5 FL (78-98); MEAN PLATELET VOLUME 7.7 FL (7.4-10.4); MONOCYTES # (AUTO) 0.4 X10'3 (0-0.9); NEUTROPHILS # (AUTO) 3.6 X10'3 (1.8-7.7); NEUTROPHILS % (AUTO) 72.4 % (42-75); PLATELET COUNT 120 X10'3 (140-440); RED BLOOD COUNT 2.75 X10'6 (4.20-5.60); RED CELL DISTRIBUTION WIDTH 17.2 % (11.5-14.5); WHITE BLOOD COUNT 4.9 X10'3 (4.5-11.0)
[2017-09-01 03:41] LABS: ALANINE AMINOTRANSFERASE 24 U/L (12-78); ALBUMIN 1.8 G/DL (3.4-5.0); ALBUMIN/GLOBULIN RATIO 0.5 (1.1-1.5); ALKALINE PHOSPHATASE 115 IU/L (46-116); ANION GAP 7 (8-16); ASPARTATE AMINO TRANSFERASE 50 U/L (10-37); BILIRUBIN,TOTAL 1.4 MG/DL (0.1-1.0); BLOOD UREA NITROGEN 39 MG/DL (7-18); BUN/CREATININE RATIO 10.3 (6.6-38.0); CALCIUM 8.7 MG/DL (8.5-10.1); CHLORIDE 104 MMOL/L (99-107); CREATININE 3.78 MG/DL (0.40-0.90); GLUCOSE 121 MG/DL (70-104); PHOSPHORUS 4.7 MG/DL (2.3-4.5); POTASSIUM 3.7 MMOL/L (3.5-5.1); SODIUM 141 MMOL/L (135-145); TOTAL CARBON DIOXIDE 30.5 MMOL/L (24-32); TOTAL PROTEIN 5.8 G/DL (6.4-8.2); VANCOMYCIN,RANDOM 25.8 UG/ML; eGFR 12 ML/MIN
[2017-09-01] MEDS: ondansetron/PF 4mg/2ml inj IV PRN ×2 (04:06→20:02)
[2017-09-01] MEDS ORDERED: epoetin 20,000 units/ml inj IV ONE (08:00)
[2017-09-01] MEDS ORDERED: LIDOcaine 1% (10mg/ml) 2ml vial SQ ONE (08:00)
[2017-09-01] MEDS ORDERED: heparin 1,000 units/ml 10ml inj IV ONE (08:00)
[2017-09-01] MEDS ORDERED: heparin 1,000unit/ml 10ml vial 10 ML IV ONE (08:00)
[2017-09-01] MEDS ORDERED: normal saline 1000ml 250 ML IV PRN (08:00)
[2017-09-01] MEDS: pantoprazole 40 MG vial IV SCH (08:16)
[2017-09-01] MEDS: lactobacillus rhamnosus 10,000 MMU CELLS/CAPSULE PO SCH (16:43)
[2017-09-01] MEDS: HYDROcodone/acetaminophen 5mg/325mg tablet PO PRN (22:05)
[2017-09-02] MEDS: heparin, porcine 5000 units/ml vial SQ SCH ×4 (00:20→23:26)
[2017-09-02 03:00] VITALS: BP 100/43
[2017-09-02] MEDS: VANCOMYCIN LEVEL IV SCH (03:00)
[2017-09-02] MEDS: HYDROcodone/acetaminophen 5mg/325mg tablet PO PRN ×4 (04:08→23:25)
[2017-09-02 05:29] LABS: BASOPHILS % (AUTO) 0.4 % (0-1); EOSINOPHILS # (AUTO) 0.2 X10'3 (0-0.9); EOSINOPHILS % (AUTO) 3.6 % (0-6); HEMATOCRIT 29.1 % (35.0-45.0); HEMOGLOBIN 9.7 g/dl (12.0-16.0); LYMPHOCYTES # (AUTO) 1.4 X10'3 (1.1-4.8); LYMPHOCYTES % (AUTO) 22.2 % (21-51); MEAN CORPUSCULAR HEMOGLOBIN 32.8 PG (27.0-31.0); MEAN CORPUSCULAR HGB CONC 33.4 % (33.0-36.5); MEAN CORPUSCULAR VOLUME 98.1 FL (78-98); MEAN PLATELET VOLUME 8.2 FL (7.4-10.4); MONOCYTES # (AUTO) 0.5 X10'3 (0-0.9); MONOCYTES % (AUTO) 8.9 % (2-12); NEUTROPHILS # (AUTO) 3.9 X10'3 (1.8-7.7); NEUTROPHILS % (AUTO) 64.9 % (42-75); PLATELET COUNT 134 X10'3 (140-440); RED BLOOD COUNT 2.97 X10'6 (4.20-5.60); RED CELL DISTRIBUTION WIDTH 17.5 % (11.5-14.5); WHITE BLOOD COUNT 6.1 X10'3 (4.5-11.0)
[2017-09-02 05:35] LABS: ALANINE AMINOTRANSFERASE 37 U/L (12-78); ALBUMIN/GLOBULIN RATIO 0.5 (1.1-1.5); ALKALINE PHOSPHATASE 125 IU/L (46-116); ANION GAP 7 (8-16); ASPARTATE AMINO TRANSFERASE 65 U/L (10-37); BILIRUBIN,TOTAL 1.3 MG/DL (0.1-1.0); BLOOD UREA NITROGEN 28 MG/DL (7-18); BUN/CREATININE RATIO 9.4 (6.6-38.0); CALCIUM 8.5 MG/DL (8.5-10.1); CHLORIDE 103 MMOL/L (99-107); CREATININE 2.99 MG/DL (0.40-0.90); GLUCOSE 109 MG/DL (70-104); MAGNESIUM 2.1 MG/DL (1.5-2.4); PHOSPHORUS 4.1 MG/DL (2.3-4.5); POTASSIUM 4.1 MMOL/L (3.5-5.1); SODIUM 139 MMOL/L (135-145); TOTAL CARBON DIOXIDE 28.8 MMOL/L (24-32); TOTAL PROTEIN 6.2 G/DL (6.4-8.2); VANCOMYCIN,RANDOM 32.4 UG/ML; eGFR 15 ML/MIN
[2017-09-02 07:00] VITALS: BP 121/52
[2017-09-02] MEDS: pantoprazole 40 MG vial IV SCH (07:27)
[2017-09-02] MEDS: lactobacillus rhamnosus 10,000 MMU CELLS/CAPSULE PO SCH ×2 (07:27→17:02)
[2017-09-02 11:00] VITALS: BP 120/71
[2017-09-02] MEDS ORDERED: LORA0.5T PO ×2 (11:21→11:24)
[2017-09-02] MEDS ORDERED: HYDROcodone/acetaminophen 5mg/325mg tablet PO PRN (13:40)
[2017-09-02] MEDS ORDERED: dicyclomine 10 MG capsule PO PRN (13:40)
[2017-09-02] MEDS: LORazepam 0.5 MG tablet PO PRN ×2 (14:09→20:10)
[2017-09-02] MEDS: traMADol 50MG tablet PO PRN ×2 (14:13→20:10)
[2017-09-02 15:00] VITALS: BP 107/49
[2017-09-02] MEDS: nystatin 15 GM powder TP SCH ×2 (15:03→20:10)
[2017-09-02] MEDS: fluconazole 100mg tablet PO SCH (16:12)
[2017-09-02] MEDS: ondansetron/PF 4mg/2ml inj IV PRN (17:02)
[2017-09-02 19:00] VITALS: BP 128/74
[2017-09-02] MEDS ORDERED: nystatin 15 GM powder TP SCH (20:00)
[2017-09-02] MEDS: gabapentin 300mg capsule PO SCH (20:10)
[2017-09-02] MEDS: insulin glargine (Lantus) pen - multi-dose SQ SCH (20:46)
[2017-09-02 23:00] VITALS: BP 132/71
[2017-09-03] MEDS: traMADol 50MG tablet PO PRN ×4 (02:47→23:17)
[2017-09-03] MEDS: LORazepam 0.5 MG tablet PO PRN ×4 (02:47→23:17)
[2017-09-03] MEDS: VANCOMYCIN LEVEL IV SCH (02:47)
[2017-09-03 03:00] VITALS: BP 124/62
[2017-09-03 04:48] LABS: BASOPHILS % (AUTO) 0.4 % (0-1); EOSINOPHILS # (AUTO) 0.3 X10'3 (0-0.9); EOSINOPHILS % (AUTO) 5.6 % (0-6); HEMATOCRIT 29.7 % (35.0-45.0); LYMPHOCYTES # (AUTO) 1.4 X10'3 (1.1-4.8); LYMPHOCYTES % (AUTO) 25.6 % (21-51); MEAN CORPUSCULAR HGB CONC 33.8 % (33.0-36.5); MEAN CORPUSCULAR VOLUME 97.7 FL (78-98); MEAN PLATELET VOLUME 7.9 FL (7.4-10.4); MONOCYTES # (AUTO) 0.5 X10'3 (0-0.9); MONOCYTES % (AUTO) 9.7 % (2-12); NEUTROPHILS # (AUTO) 3.2 X10'3 (1.8-7.7); NEUTROPHILS % (AUTO) 58.7 % (42-75); PLATELET COUNT 141 X10'3 (140-440); RED BLOOD COUNT 3.04 X10'6 (4.20-5.60); WHITE BLOOD COUNT 5.5 X10'3 (4.5-11.0)
[2017-09-03 04:52] LABS: ALANINE AMINOTRANSFERASE 38 U/L (12-78); ALBUMIN 2.1 G/DL (3.4-5.0); ALBUMIN/GLOBULIN RATIO 0.5 (1.1-1.5); ALKALINE PHOSPHATASE 123 IU/L (46-116); ANION GAP 7 (8-16); ASPARTATE AMINO TRANSFERASE 79 U/L (10-37); BILIRUBIN,TOTAL 1.1 MG/DL (0.1-1.0); BLOOD UREA NITROGEN 36 MG/DL (7-18); BUN/CREATININE RATIO 9.4 (6.6-38.0); CALCIUM 8.6 MG/DL (8.5-10.1); CHLORIDE 103 MMOL/L (99-107); CREATININE 3.82 MG/DL (0.40-0.90); GLUCOSE 120 MG/DL (70-104); MAGNESIUM 2.1 MG/DL (1.5-2.4); SODIUM 140 MMOL/L (135-145); TOTAL CARBON DIOXIDE 30.3 MMOL/L (24-32); TOTAL PROTEIN 6.5 G/DL (6.4-8.2); VANCOMYCIN,RANDOM 25.8 UG/ML; eGFR 11 ML/MIN
[2017-09-03 04:53] LABS: POTASSIUM 4.2 MMOL/L (3.5-5.1)
[2017-09-03 07:00] VITALS: BP 110/63
[2017-09-03 07:14] LABS: ANISOCYTOSIS 1+; HYPOCHROMASIA 1+; PLATELET ESTIMATE NORMAL; POLYCHROMASIA 1+; TARGET CELLS FEW
[2017-09-03] MEDS: folic acid/vitamin B complex w/vitamin C 0.8mg tablet PO SCH (07:19)
[2017-09-03] MEDS: aspirin 81mg tablet.DR PO SCH (07:19)
[2017-09-03] MEDS: lactobacillus rhamnosus 10,000 MMU CELLS/CAPSULE PO SCH ×2 (07:19→20:28)
[2017-09-03] MEDS: pantoprazole 40mg Tablet.DR PO SCH (07:19)
[2017-09-03] MEDS: levoTHYROXINE 125mcg tablet PO SCH (07:19)
[2017-09-03] MEDS: gabapentin 300mg capsule PO SCH ×3 (07:19→20:27)
[2017-09-03] MEDS: HYDROcodone/acetaminophen 5mg/325mg tablet PO PRN ×3 (07:20→20:27)
[2017-09-03] MEDS: fluconazole 100mg tablet PO SCH (07:20)
[2017-09-03] MEDS: losartan 25mg tablet PO SCH (07:20)
[2017-09-03] MEDS: heparin, porcine 5000 units/ml vial SQ SCH ×3 (07:21→23:16)
[2017-09-03] MEDS: nystatin 15 GM powder TP SCH ×2 (07:21→20:29)
[2017-09-03] MEDS ORDERED: LIDOcaine 1% (10mg/ml) 2ml vial SQ ONE (08:00)
[2017-09-03] MEDS ORDERED: normal saline 1000ml 250 ML IV PRN (08:00)
[2017-09-03] MEDS ORDERED: heparin 1,000 units/ml 10ml inj IV ONE (08:00)
[2017-09-03] MEDS ORDERED: epoetin 20,000 units/ml inj IV ONE (08:00)
[2017-09-03 11:00] VITALS: BP 103/59
[2017-09-03 15:00] VITALS: BP 94/49
[2017-09-03 19:00] VITALS: BP 118/64
[2017-09-03] MEDS: insulin glargine (Lantus) pen - multi-dose SQ SCH (21:00)
[2017-09-03 22:00] VITALS: BP 126/56
[2017-09-04 02:00] VITALS: BP 105/56
[2017-09-04] MEDS: LORazepam 0.5 MG tablet PO PRN ×3 (05:35→20:49)
[2017-09-04] MEDS: traMADol 50MG tablet PO PRN (05:35)
[2017-09-04 06:34] LABS: BASOPHILS % (AUTO) 0.5 % (0-1); EOSINOPHILS # (AUTO) 0.3 X10'3 (0-0.9); HEMATOCRIT 29.5 % (35.0-45.0); HEMOGLOBIN 9.9 g/dl (12.0-16.0); LYMPHOCYTES # (AUTO) 1.3 X10'3 (1.1-4.8); LYMPHOCYTES % (AUTO) 24.2 % (21-51); MEAN CORPUSCULAR HEMOGLOBIN 32.8 PG (27.0-31.0); MEAN CORPUSCULAR HGB CONC 33.7 % (33.0-36.5); MEAN CORPUSCULAR VOLUME 97.4 FL (78-98); MEAN PLATELET VOLUME 7.9 FL (7.4-10.4); MONOCYTES # (AUTO) 0.5 X10'3 (0-0.9); NEUTROPHILS # (AUTO) 3.2 X10'3 (1.8-7.7); NEUTROPHILS % (AUTO) 60.3 % (42-75); PLATELET COUNT 110 X10'3 (140-440); RED BLOOD COUNT 3.03 X10'6 (4.20-5.60); RED CELL DISTRIBUTION WIDTH 17.1 % (11.5-14.5); WHITE BLOOD COUNT 5.3 X10'3 (4.5-11.0)
[2017-09-04 06:35] VITALS: BP 113/59
[2017-09-04 06:59] LABS: ALANINE AMINOTRANSFERASE 52 U/L (12-78); ALBUMIN/GLOBULIN RATIO 0.5 (1.1-1.5); ALKALINE PHOSPHATASE 119 IU/L (46-116); ANION GAP 7 (8-16); ASPARTATE AMINO TRANSFERASE 90 U/L (10-37); BLOOD UREA NITROGEN 28 MG/DL (7-18); CALCIUM 8.1 MG/DL (8.5-10.1); CHLORIDE 101 MMOL/L (99-107); CREATININE 3.48 MG/DL (0.40-0.90); GLUCOSE 116 MG/DL (70-104); MAGNESIUM 1.9 MG/DL (1.5-2.4); PHOSPHORUS 4.4 MG/DL (2.3-4.5); POTASSIUM 4.1 MMOL/L (3.5-5.1); SODIUM 137 MMOL/L (135-145); TOTAL PROTEIN 6.4 G/DL (6.4-8.2); eGFR 13 ML/MIN
[2017-09-04] MEDS: heparin, porcine 5000 units/ml vial SQ SCH ×2 (08:00→18:00)
[2017-09-04] MEDS: levoTHYROXINE 125mcg tablet PO SCH (10:02)
[2017-09-04] MEDS: lactobacillus rhamnosus 10,000 MMU CELLS/CAPSULE PO SCH ×2 (10:02→19:39)
[2017-09-04] MEDS: folic acid/vitamin B complex w/vitamin C 0.8mg tablet PO SCH (10:02)
[2017-09-04] MEDS: gabapentin 300mg capsule PO SCH (10:03)
[2017-09-04] MEDS: aspirin 81mg tablet.DR PO SCH (10:03)
[2017-09-04] MEDS: pantoprazole 40mg Tablet.DR PO SCH (10:03)
[2017-09-04] MEDS: fluconazole 100mg tablet PO SCH (10:03)
[2017-09-04] MEDS: losartan 25mg tablet PO SCH (10:04)
[2017-09-04] MEDS: HYDROcodone/acetaminophen 5mg/325mg tablet PO PRN ×2 (10:05→19:38)
[2017-09-04] MEDS: nystatin 15 GM powder TP SCH ×2 (10:06→19:39)
[2017-09-04 11:00] VITALS: BP 101/41
[2017-09-04 18:00] VITALS: BP 123/63
[2017-09-04] MEDS: gabapentin 100mg capsule PO SCH (19:38)
[2017-09-04] MEDS: insulin glargine (Lantus) pen - multi-dose SQ SCH (21:00)
[2017-09-04] MEDS: albuterol 2.5 MG/3 ML nebule NEB PRN (21:49)
[2017-09-04 22:00] VITALS: BP 101/44
[2017-09-05] VITALS (7 sets, daily range): BP systolic 102–174; BP diastolic 43–78
[2017-09-05] MEDS: heparin, porcine 5000 units/ml vial SQ SCH ×3 (00:24→16:47)
[2017-09-05] MEDS: LORazepam 0.5 MG tablet PO PRN (04:42)
[2017-09-05] MEDS: lactobacillus rhamnosus 10,000 MMU CELLS/CAPSULE PO SCH ×2 (08:27→20:00)
[2017-09-05] MEDS: pantoprazole 40mg Tablet.DR PO SCH (08:27)
[2017-09-05] MEDS: levoTHYROXINE 125mcg tablet PO SCH (08:27)
[2017-09-05] MEDS: gabapentin 100mg capsule PO SCH ×3 (08:27→21:00)
[2017-09-05] MEDS: aspirin 81mg tablet.DR PO SCH (08:27)
[2017-09-05] MEDS: losartan 25mg tablet PO SCH (08:27)
[2017-09-05] MEDS: folic acid/vitamin B complex w/vitamin C 0.8mg tablet PO SCH (08:27)
[2017-09-05] MEDS: nystatin 15 GM powder TP SCH ×2 (08:31→20:00)
[2017-09-05 08:44] LABS: BASOPHILS % (AUTO) 0.5 % (0-1); EOSINOPHILS # (AUTO) 0.3 X10'3 (0-0.9); HEMATOCRIT 31.4 % (35.0-45.0); HEMOGLOBIN 10.4 g/dl (12.0-16.0); LYMPHOCYTES # (AUTO) 1.2 X10'3 (1.1-4.8); MEAN CORPUSCULAR HEMOGLOBIN 32.6 PG (27.0-31.0); MEAN CORPUSCULAR HGB CONC 33.2 % (33.0-36.5); MEAN CORPUSCULAR VOLUME 98.2 FL (78-98); MONOCYTES # (AUTO) 0.5 X10'3 (0-0.9); MONOCYTES % (AUTO) 9.1 % (2-12); NEUTROPHILS # (AUTO) 3.6 X10'3 (1.8-7.7); NEUTROPHILS % (AUTO) 64.4 % (42-75); PLATELET COUNT 128 X10'3 (140-440); RED CELL DISTRIBUTION WIDTH 17.4 % (11.5-14.5); WHITE BLOOD COUNT 5.5 X10'3 (4.5-11.0)
[2017-09-05 09:03] LABS: ALANINE AMINOTRANSFERASE 64 U/L (12-78); ALBUMIN 2.2 G/DL (3.4-5.0); ALBUMIN/GLOBULIN RATIO 0.5 (1.1-1.5); ALKALINE PHOSPHATASE 135 IU/L (46-116); ANION GAP 8 (8-16); ASPARTATE AMINO TRANSFERASE 98 U/L (10-37); BILIRUBIN,TOTAL 1.1 MG/DL (0.1-1.0); BLOOD UREA NITROGEN 35 MG/DL (7-18); BUN/CREATININE RATIO 8.7 (6.6-38.0); CALCIUM 8.4 MG/DL (8.5-10.1); CHLORIDE 98 MMOL/L (99-107); CREATININE 4.02 MG/DL (0.40-0.90); GLUCOSE 146 MG/DL (70-104); PHOSPHORUS 4.6 MG/DL (2.3-4.5); POTASSIUM 4.4 MMOL/L (3.5-5.1); SODIUM 134 MMOL/L (135-145); TOTAL PROTEIN 6.7 G/DL (6.4-8.2); eGFR 11 ML/MIN
[2017-09-05] MEDS: fluconazole 100mg tablet PO SCH (09:14)
[2017-09-05] MEDS: insulin glargine (Lantus) pen - multi-dose SQ SCH (21:00)
[2017-09-06 02:00] VITALS: BP 175/77
[2017-09-06 05:30] VITALS: BP 174/74
[2017-09-06 06:08] LABS: BASOPHILS % (AUTO) 0.3 % (0-1); EOSINOPHILS # (AUTO) 0.3 X10'3 (0-0.9); EOSINOPHILS % (AUTO) 5.5 % (0-6); HEMATOCRIT 31.3 % (35.0-45.0); HEMOGLOBIN 10.8 g/dl (12.0-16.0); LYMPHOCYTES # (AUTO) 1.3 X10'3 (1.1-4.8); LYMPHOCYTES % (AUTO) 24.5 % (21-51); MEAN CORPUSCULAR HEMOGLOBIN 33.3 PG (27.0-31.0); MEAN CORPUSCULAR HGB CONC 34.6 % (33.0-36.5); MEAN PLATELET VOLUME 8.1 FL (7.4-10.4); MONOCYTES # (AUTO) 0.6 X10'3 (0-0.9); MONOCYTES % (AUTO) 10.9 % (2-12); NEUTROPHILS % (AUTO) 58.8 % (42-75); PLATELET COUNT 133 X10'3 (140-440); RED BLOOD COUNT 3.26 X10'6 (4.20-5.60); RED CELL DISTRIBUTION WIDTH 17.1 % (11.5-14.5); WHITE BLOOD COUNT 5.2 X10'3 (4.5-11.0)
[2017-09-06 06:24] LABS: ALANINE AMINOTRANSFERASE 60 U/L (12-78); ALBUMIN 2.3 G/DL (3.4-5.0); ALBUMIN/GLOBULIN RATIO 0.5 (1.1-1.5); ALKALINE PHOSPHATASE 134 IU/L (46-116); ANION GAP 8 (8-16); ASPARTATE AMINO TRANSFERASE 87 U/L (10-37); BILIRUBIN,TOTAL 1.4 MG/DL (0.1-1.0); BLOOD UREA NITROGEN 40 MG/DL (7-18); BUN/CREATININE RATIO 9.4 (6.6-38.0); CHLORIDE 97 MMOL/L (99-107); CREATININE 4.27 MG/DL (0.40-0.90); GLUCOSE 131 MG/DL (70-104); MAGNESIUM 2.1 MG/DL (1.5-2.4); PHOSPHORUS 4.8 MG/DL (2.3-4.5); POTASSIUM 4.6 MMOL/L (3.5-5.1); SODIUM 133 MMOL/L (135-145); TOTAL CARBON DIOXIDE 27.8 MMOL/L (24-32); TOTAL PROTEIN 6.9 G/DL (6.4-8.2); eGFR 10 ML/MIN
[2017-09-06] MEDS: pantoprazole 40mg Tablet.DR PO SCH (07:30)
[2017-09-06] MEDS: gabapentin 100mg capsule PO SCH ×3 (08:00→20:48)
[2017-09-06] MEDS: fluconazole 100mg tablet PO SCH (08:00)
[2017-09-06] MEDS: lactobacillus rhamnosus 10,000 MMU CELLS/CAPSULE PO SCH ×2 (08:00→20:48)
[2017-09-06] MEDS: nystatin 15 GM powder TP SCH ×2 (08:00→20:48)
[2017-09-06] MEDS: aspirin 81mg tablet.DR PO SCH (08:00)
[2017-09-06] MEDS: levoTHYROXINE 125mcg tablet PO SCH (08:00)
[2017-09-06] MEDS: losartan 25mg tablet PO SCH (08:00)
[2017-09-06] MEDS: folic acid/vitamin B complex w/vitamin C 0.8mg tablet PO SCH (08:00)
[2017-09-06] MEDS: heparin, porcine 5000 units/ml vial SQ SCH ×4 (10:45→23:59)
[2017-09-06 11:00] VITALS: BP 150/82
[2017-09-06] MEDS ORDERED: LIDOcaine 1% (10mg/ml) 2ml vial SQ ONE (13:45)
[2017-09-06] MEDS ORDERED: albumin (human) 25% 100ml IV 100 ML IV PRN (13:45)
[2017-09-06] MEDS ORDERED: heparin 1,000 units/ml 10ml inj IV ONE (13:45)
[2017-09-06 15:00] VITALS: BP 153/89
[2017-09-06] MEDS: ondansetron/PF 4mg/2ml inj IV PRN (16:01)
[2017-09-06] MEDS: HYDROcodone/acetaminophen 5mg/325mg tablet PO PRN (17:05)
[2017-09-06 18:30] VITALS: BP 106/65
[2017-09-06] MEDS: insulin glargine (Lantus) pen - multi-dose SQ SCH (21:00)
[2017-09-06 22:00] VITALS: BP 112/63
[2017-09-07] VITALS (7 sets, daily range): BP systolic 127–170; BP diastolic 57–82
[2017-09-07] MEDS: HYDROcodone/acetaminophen 5mg/325mg tablet PO PRN ×4 (00:03→23:27)
[2017-09-07 05:38] LABS: BASOPHILS % (AUTO) 0.3 % (0-1); EOSINOPHILS # (AUTO) 0.2 X10'3 (0-0.9); EOSINOPHILS % (AUTO) 4.1 % (0-6); HEMATOCRIT 31.2 % (35.0-45.0); HEMOGLOBIN 10.8 g/dl (12.0-16.0); LYMPHOCYTES # (AUTO) 1.2 X10'3 (1.1-4.8); LYMPHOCYTES % (AUTO) 22.2 % (21-51); MEAN CORPUSCULAR HEMOGLOBIN 33.2 PG (27.0-31.0); MEAN CORPUSCULAR HGB CONC 34.6 % (33.0-36.5); MEAN CORPUSCULAR VOLUME 95.8 FL (78-98); MEAN PLATELET VOLUME 7.9 FL (7.4-10.4); MONOCYTES # (AUTO) 0.5 X10'3 (0-0.9); NEUTROPHILS # (AUTO) 3.3 X10'3 (1.8-7.7); NEUTROPHILS % (AUTO) 64.4 % (42-75); PLATELET COUNT 133 X10'3 (140-440); RED BLOOD COUNT 3.26 X10'6 (4.20-5.60); RED CELL DISTRIBUTION WIDTH 17.3 % (11.5-14.5); WHITE BLOOD COUNT 5.2 X10'3 (4.5-11.0)
[2017-09-07 05:49] LABS: ALANINE AMINOTRANSFERASE 56 U/L (12-78); ALBUMIN 2.2 G/DL (3.4-5.0); ALBUMIN/GLOBULIN RATIO 0.5 (1.1-1.5); ALKALINE PHOSPHATASE 133 IU/L (46-116); ANION GAP 9 (8-16); ASPARTATE AMINO TRANSFERASE 82 U/L (10-37); BILIRUBIN,TOTAL 1.5 MG/DL (0.1-1.0); BLOOD UREA NITROGEN 26 MG/DL (7-18); BUN/CREATININE RATIO 7.9 (6.6-38.0); CALCIUM 8.9 MG/DL (8.5-10.1); CHLORIDE 99 MMOL/L (99-107); CREATININE 3.28 MG/DL (0.40-0.90); GLUCOSE 121 MG/DL (70-104); MAGNESIUM 1.9 MG/DL (1.5-2.4); PHOSPHORUS 4.3 MG/DL (2.3-4.5); POTASSIUM 4.4 MMOL/L (3.5-5.1); SODIUM 136 MMOL/L (135-145); TOTAL CARBON DIOXIDE 28.3 MMOL/L (24-32); eGFR 14 ML/MIN
[2017-09-07] MEDS: lactobacillus rhamnosus 10,000 MMU CELLS/CAPSULE PO SCH ×2 (07:52→21:21)
[2017-09-07] MEDS: aspirin 81mg tablet.DR PO SCH (07:52)
[2017-09-07] MEDS: gabapentin 100mg capsule PO SCH ×3 (07:52→21:21)
[2017-09-07] MEDS: losartan 25mg tablet PO SCH (07:52)
[2017-09-07] MEDS: folic acid/vitamin B complex w/vitamin C 0.8mg tablet PO SCH (07:52)
[2017-09-07] MEDS: pantoprazole 40mg Tablet.DR PO SCH (07:52)
[2017-09-07] MEDS: levoTHYROXINE 125mcg tablet PO SCH (07:52)
[2017-09-07] MEDS: fluconazole 100mg tablet PO SCH (07:53)
[2017-09-07] MEDS: heparin, porcine 5000 units/ml vial SQ SCH ×3 (07:53→23:20)
[2017-09-07] MEDS: nystatin 15 GM powder TP SCH ×2 (07:53→21:22)
[2017-09-07] MEDS: traMADol 50MG tablet PO PRN (09:57)
[2017-09-07] MEDS: insulin glargine (Lantus) pen - multi-dose SQ SCH (21:00)
[2017-09-08] MEDS: HYDROcodone/acetaminophen 5mg/325mg tablet PO PRN ×4 (05:16→22:09)
[2017-09-08 05:32] LABS: BASOPHILS % (AUTO) 0.5 % (0-1); EOSINOPHILS # (AUTO) 0.2 X10'3 (0-0.9); EOSINOPHILS % (AUTO) 4.5 % (0-6); HEMATOCRIT 29.9 % (35.0-45.0); LYMPHOCYTES # (AUTO) 1.2 X10'3 (1.1-4.8); LYMPHOCYTES % (AUTO) 27.2 % (21-51); MEAN CORPUSCULAR HEMOGLOBIN 32.6 PG (27.0-31.0); MEAN CORPUSCULAR HGB CONC 33.4 % (33.0-36.5); MEAN CORPUSCULAR VOLUME 97.7 FL (78-98); MEAN PLATELET VOLUME 7.7 FL (7.4-10.4); MONOCYTES # (AUTO) 0.5 X10'3 (0-0.9); MONOCYTES % (AUTO) 12.1 % (2-12); NEUTROPHILS # (AUTO) 2.5 X10'3 (1.8-7.7); NEUTROPHILS % (AUTO) 55.7 % (42-75); PLATELET COUNT 122 X10'3 (140-440); RED BLOOD COUNT 3.06 X10'6 (4.20-5.60); RED CELL DISTRIBUTION WIDTH 17.2 % (11.5-14.5); WHITE BLOOD COUNT 4.6 X10'3 (4.5-11.0)
[2017-09-08 05:54] LABS: ALANINE AMINOTRANSFERASE 52 U/L (12-78); ALBUMIN 2.1 G/DL (3.4-5.0); ALBUMIN/GLOBULIN RATIO 0.5 (1.1-1.5); ALKALINE PHOSPHATASE 121 IU/L (46-116); ANION GAP 7 (8-16); ASPARTATE AMINO TRANSFERASE 70 U/L (10-37); BILIRUBIN,TOTAL 1.2 MG/DL (0.1-1.0); BLOOD UREA NITROGEN 34 MG/DL (7-18); BUN/CREATININE RATIO 8.9 (6.6-38.0); CALCIUM 8.7 MG/DL (8.5-10.1); CHLORIDE 101 MMOL/L (99-107); CREATININE 3.81 MG/DL (0.40-0.90); GLUCOSE 120 MG/DL (70-104); PHOSPHORUS 4.6 MG/DL (2.3-4.5); POTASSIUM 4.4 MMOL/L (3.5-5.1); SODIUM 137 MMOL/L (135-145); TOTAL CARBON DIOXIDE 29.4 MMOL/L (24-32); TOTAL PROTEIN 6.4 G/DL (6.4-8.2); eGFR 11 ML/MIN
[2017-09-08 08:00] VITALS: BP 97/58
[2017-09-08] MEDS ORDERED: heparin 1,000unit/ml 10ml vial 10 ML IV ONE (08:00)
[2017-09-08] MEDS ORDERED: heparin 1,000 units/ml 10ml inj IV ONE (08:00)
[2017-09-08] MEDS: heparin, porcine 5000 units/ml vial SQ SCH ×2 (08:00→16:00)
[2017-09-08] MEDS: nystatin 15 GM powder TP SCH ×2 (08:00→20:07)
[2017-09-08] MEDS ORDERED: albumin (human) 25% 100ml IV 100 ML IV PRN (08:00)
[2017-09-08] MEDS: losartan 25mg tablet PO SCH (08:50)
[2017-09-08] MEDS: levoTHYROXINE 125mcg tablet PO SCH (08:50)
[2017-09-08] MEDS: aspirin 81mg tablet.DR PO SCH (08:50)
[2017-09-08] MEDS: folic acid/vitamin B complex w/vitamin C 0.8mg tablet PO SCH (08:50)
[2017-09-08] MEDS: gabapentin 100mg capsule PO SCH ×3 (08:50→20:04)
[2017-09-08] MEDS: lactobacillus rhamnosus 10,000 MMU CELLS/CAPSULE PO SCH ×2 (08:50→20:03)
[2017-09-08] MEDS ORDERED: LIDOcaine 1% (10mg/ml) 2ml vial SQ ONE (08:55)
[2017-09-08] MEDS: pantoprazole 40mg Tablet.DR PO SCH (10:03)
[2017-09-08 12:56] VITALS: BP 77/50
[2017-09-08] MEDS: fluconazole 100mg tablet PO SCH (16:07)
[2017-09-08 19:00] VITALS: BP 151/71
[2017-09-08] MEDS: insulin glargine (Lantus) pen - multi-dose SQ SCH (21:00)
[2017-09-09] VITALS: BP 128/68
[2017-09-09 05:49] LABS: BASOPHILS % (AUTO) 0.4 % (0-1); EOSINOPHILS # (AUTO) 0.2 X10'3 (0-0.9); EOSINOPHILS % (AUTO) 4.5 % (0-6); HEMATOCRIT 30.5 % (35.0-45.0); HEMOGLOBIN 10.1 g/dl (12.0-16.0); LYMPHOCYTES # (AUTO) 1.4 X10'3 (1.1-4.8); LYMPHOCYTES % (AUTO) 32.8 % (21-51); MEAN CORPUSCULAR HEMOGLOBIN 32.4 PG (27.0-31.0); MEAN CORPUSCULAR VOLUME 98.1 FL (78-98); MEAN PLATELET VOLUME 7.6 FL (7.4-10.4); MONOCYTES # (AUTO) 0.6 X10'3 (0-0.9); MONOCYTES % (AUTO) 13.9 % (2-12); NEUTROPHILS # (AUTO) 2.1 X10'3 (1.8-7.7); NEUTROPHILS % (AUTO) 48.4 % (42-75); PLATELET COUNT 110 X10'3 (140-440); RED BLOOD COUNT 3.11 X10'6 (4.20-5.60); RED CELL DISTRIBUTION WIDTH 17.5 % (11.5-14.5); WHITE BLOOD COUNT 4.4 X10'3 (4.5-11.0)
[2017-09-09 06:14] LABS: ALANINE AMINOTRANSFERASE 51 U/L (12-78); ALBUMIN 2.4 G/DL (3.4-5.0); ALBUMIN/GLOBULIN RATIO 0.6 (1.1-1.5); ALKALINE PHOSPHATASE 113 IU/L (46-116); ANION GAP 9 (8-16); ASPARTATE AMINO TRANSFERASE 75 U/L (10-37); BILIRUBIN,TOTAL 1.4 MG/DL (0.1-1.0); BLOOD UREA NITROGEN 26 MG/DL (7-18); BUN/CREATININE RATIO 8.2 (6.6-38.0); CALCIUM 8.9 MG/DL (8.5-10.1); CHLORIDE 100 MMOL/L (99-107); CREATININE 3.16 MG/DL (0.40-0.90); GLUCOSE 95 MG/DL (70-104); POTASSIUM 4.3 MMOL/L (3.5-5.1); SODIUM 137 MMOL/L (135-145); TOTAL CARBON DIOXIDE 28.4 MMOL/L (24-32); TOTAL PROTEIN 6.6 G/DL (6.4-8.2); eGFR 14 ML/MIN
[2017-09-09 09:00] VITALS: BP 121/48
[2017-09-09] MEDS: pantoprazole 40mg Tablet.DR PO SCH (09:52)
[2017-09-09] MEDS: lactobacillus rhamnosus 10,000 MMU CELLS/CAPSULE PO SCH ×2 (09:53→20:06)
[2017-09-09] MEDS: losartan 25mg tablet PO SCH (09:53)
[2017-09-09] MEDS: folic acid/vitamin B complex w/vitamin C 0.8mg tablet PO SCH (09:54)
[2017-09-09] MEDS: aspirin 81mg tablet.DR PO SCH (09:54)
[2017-09-09] MEDS: fluconazole 100mg tablet PO SCH (09:54)
[2017-09-09] MEDS: levoTHYROXINE 125mcg tablet PO SCH (09:55)
[2017-09-09] MEDS: gabapentin 100mg capsule PO SCH ×3 (09:55→20:06)
[2017-09-09] MEDS: nystatin 15 GM powder TP SCH ×2 (09:55→20:07)
[2017-09-09] MEDS: heparin, porcine 5000 units/ml vial SQ SCH ×3 (09:56→15:56)
[2017-09-09 12:16] VITALS: BP 143/72
[2017-09-09 20:00] VITALS: BP 155/78
[2017-09-09] MEDS: insulin glargine (Lantus) pen - multi-dose SQ SCH (20:04)
[2017-09-09] MEDS: HYDROcodone/acetaminophen 5mg/325mg tablet PO PRN (21:59)
[2017-09-10] VITALS: BP 102/66
[2017-09-10] MEDS: heparin, porcine 5000 units/ml vial SQ SCH ×3 (00:22→16:16)
[2017-09-10 06:26] LABS: ALANINE AMINOTRANSFERASE 54 U/L (12-78); ALBUMIN 2.4 G/DL (3.4-5.0); ALBUMIN/GLOBULIN RATIO 0.6 (1.1-1.5); ALKALINE PHOSPHATASE 114 IU/L (46-116); ANION GAP 8 (8-16); ASPARTATE AMINO TRANSFERASE 73 U/L (10-37); BILIRUBIN,TOTAL 1.2 MG/DL (0.1-1.0); BLOOD UREA NITROGEN 33 MG/DL (7-18); BUN/CREATININE RATIO 9.1 (6.6-38.0); CALCIUM 8.7 MG/DL (8.5-10.1); CHLORIDE 101 MMOL/L (99-107); CREATININE 3.62 MG/DL (0.40-0.90); GLUCOSE 133 MG/DL (70-104); PHOSPHORUS 4.1 MG/DL (2.3-4.5); POTASSIUM 4.2 MMOL/L (3.5-5.1); SODIUM 138 MMOL/L (135-145); TOTAL CARBON DIOXIDE 28.7 MMOL/L (24-32); TOTAL PROTEIN 6.6 G/DL (6.4-8.2); eGFR 12 ML/MIN
[2017-09-10 06:27] LABS: BASOPHILS % (AUTO) 0.5 % (0-1); EOSINOPHILS # (AUTO) 0.2 X10'3 (0-0.9); HEMOGLOBIN 10.1 g/dl (12.0-16.0); LYMPHOCYTES # (AUTO) 1.2 X10'3 (1.1-4.8); MEAN CORPUSCULAR HGB CONC 33.8 % (33.0-36.5); MEAN CORPUSCULAR VOLUME 97.5 FL (78-98); MEAN PLATELET VOLUME 8.1 FL (7.4-10.4); MONOCYTES # (AUTO) 0.5 X10'3 (0-0.9); MONOCYTES % (AUTO) 11.6 % (2-12); NEUTROPHILS # (AUTO) 2.4 X10'3 (1.8-7.7); NEUTROPHILS % (AUTO) 54.9 % (42-75); PLATELET COUNT 113 X10'3 (140-440); RED BLOOD COUNT 3.07 X10'6 (4.20-5.60); RED CELL DISTRIBUTION WIDTH 16.8 % (11.5-14.5); WHITE BLOOD COUNT 4.3 X10'3 (4.5-11.0)
[2017-09-10] MEDS ORDERED: LIDOcaine 1% (10mg/ml) 2ml vial SQ ONE (07:25)
[2017-09-10] MEDS: pantoprazole 40mg Tablet.DR PO SCH (07:30)
[2017-09-10 08:00] VITALS: BP 122/88
[2017-09-10] MEDS ORDERED: heparin 1,000 units/ml 10ml inj IV ONE (08:00)
[2017-09-10] MEDS ORDERED: albumin (human) 25% 100ml IV 100 ML IV PRN (08:00)
[2017-09-10] MEDS ORDERED: heparin 1,000unit/ml 10ml vial 10 ML IV ONE (08:00)
[2017-09-10] MEDS: lactobacillus rhamnosus 10,000 MMU CELLS/CAPSULE PO SCH ×2 (08:00→19:50)
[2017-09-10] MEDS: losartan 25mg tablet PO SCH (08:00)
[2017-09-10] MEDS: folic acid/vitamin B complex w/vitamin C 0.8mg tablet PO SCH (08:00)
[2017-09-10] MEDS: nystatin 15 GM powder TP SCH ×2 (08:00→19:50)
[2017-09-10] MEDS: levoTHYROXINE 125mcg tablet PO SCH (08:00)
[2017-09-10] MEDS ORDERED: epoetin 20,000 units/ml inj IV ONE (08:00)
[2017-09-10] MEDS: aspirin 81mg tablet.DR PO SCH (08:00)
[2017-09-10] MEDS: gabapentin 100mg capsule PO SCH ×3 (09:44→20:58)
[2017-09-10 12:00] VITALS: BP 113/54
[2017-09-10 19:00] VITALS: BP 159/75
[2017-09-10] MEDS ORDERED: MESSAGE TO PHARMACY PO ONE (22:05)
[2017-09-10] MEDS ORDERED: dextrose ORAL solution 15 GM/59 ML bottle PO PRN ×2 (22:05)
[2017-09-10] MEDS ORDERED: dextrose 50%-water 50ml dispensing syringe IV PRN ×2 (22:05)
[2017-09-10] MEDS ORDERED: glucagon, human recombinant 1mg kit SUBCUT PRN (22:05)
[2017-09-10] MEDS: insulin glargine (Lantus) pen - multi-dose SQ SCH (22:38)
[2017-09-10] MEDS: diphenhydrAMINE 25mg capsule PO PRN (22:43)
[2017-09-11] VITALS: BP 121/58
[2017-09-11] MEDS: heparin, porcine 5000 units/ml vial SQ SCH ×4 (00:46→23:23)
[2017-09-11] MEDS: diphenhydrAMINE 25mg capsule PO PRN ×2 (00:46→23:22)
[2017-09-11 04:50] LABS: BASOPHILS % (AUTO) 0.3 % (0-1); EOSINOPHILS # (AUTO) 0.2 X10'3 (0-0.9); EOSINOPHILS % (AUTO) 5.3 % (0-6); HEMATOCRIT 31.3 % (35.0-45.0); HEMOGLOBIN 10.6 g/dl (12.0-16.0); LYMPHOCYTES # (AUTO) 1.2 X10'3 (1.1-4.8); LYMPHOCYTES % (AUTO) 28.1 % (21-51); MEAN CORPUSCULAR HEMOGLOBIN 32.8 PG (27.0-31.0); MEAN CORPUSCULAR HGB CONC 33.9 % (33.0-36.5); MEAN CORPUSCULAR VOLUME 96.8 FL (78-98); MEAN PLATELET VOLUME 7.8 FL (7.4-10.4); MONOCYTES # (AUTO) 0.6 X10'3 (0-0.9); MONOCYTES % (AUTO) 13.9 % (2-12); NEUTROPHILS # (AUTO) 2.3 X10'3 (1.8-7.7); NEUTROPHILS % (AUTO) 52.4 % (42-75); PLATELET COUNT 110 X10'3 (140-440); RED BLOOD COUNT 3.24 X10'6 (4.20-5.60); RED CELL DISTRIBUTION WIDTH 16.4 % (11.5-14.5); WHITE BLOOD COUNT 4.3 X10'3 (4.5-11.0)
[2017-09-11 05:18] LABS: ALANINE AMINOTRANSFERASE 50 U/L (12-78); ALBUMIN 2.5 G/DL (3.4-5.0); ALBUMIN/GLOBULIN RATIO 0.6 (1.1-1.5); ALKALINE PHOSPHATASE 113 IU/L (46-116); ANION GAP 7 (8-16); ASPARTATE AMINO TRANSFERASE 68 U/L (10-37); BILIRUBIN,TOTAL 1.3 MG/DL (0.1-1.0); BLOOD UREA NITROGEN 22 MG/DL (7-18); BUN/CREATININE RATIO 7.6 (6.6-38.0); CALCIUM 8.7 MG/DL (8.5-10.1); CHLORIDE 101 MMOL/L (99-107); GLUCOSE 131 MG/DL (70-104); MAGNESIUM 1.9 MG/DL (1.5-2.4); PHOSPHORUS 2.8 MG/DL (2.3-4.5); POTASSIUM 3.9 MMOL/L (3.5-5.1); SODIUM 137 MMOL/L (135-145); TOTAL CARBON DIOXIDE 29.2 MMOL/L (24-32); TOTAL PROTEIN 6.6 G/DL (6.4-8.2); eGFR 16 ML/MIN
[2017-09-11] MEDS: losartan 25mg tablet PO SCH (07:31)
[2017-09-11] MEDS: lactobacillus rhamnosus 10,000 MMU CELLS/CAPSULE PO SCH ×2 (07:31→20:02)
[2017-09-11] MEDS: levoTHYROXINE 125mcg tablet PO SCH (07:31)
[2017-09-11] MEDS: aspirin 81mg tablet.DR PO SCH (07:31)
[2017-09-11] MEDS: folic acid/vitamin B complex w/vitamin C 0.8mg tablet PO SCH (07:31)
[2017-09-11] MEDS: gabapentin 100mg capsule PO SCH ×3 (07:31→20:04)
[2017-09-11] MEDS: pantoprazole 40mg Tablet.DR PO SCH (07:31)
[2017-09-11] MEDS: nystatin 15 GM powder TP SCH ×2 (07:32→20:05)
[2017-09-11 08:00] VITALS: BP 114/75
[2017-09-11] MEDS: albuterol 2.5 MG/3 ML nebule NEB PRN (10:43)
[2017-09-11 12:00] VITALS: BP 127/72
[2017-09-11] MEDS: HYDROcodone/acetaminophen 5mg/325mg tablet PO PRN ×2 (13:38→20:02)
[2017-09-11] MEDS: insulin Lispro (HumaLOG) vial - multi-dose SQ SCH (14:19)
[2017-09-11] MEDS: traMADol 50MG tablet PO PRN ×2 (17:32→23:22)
[2017-09-11 20:00] VITALS: BP 91/52
[2017-09-11] MEDS: insulin glargine (Lantus) pen - multi-dose SQ SCH (21:36)
[2017-09-12] VITALS: BP 112/65
[2017-09-12 05:32] LABS: BASOPHILS % (AUTO) 0.2 % (0-1); EOSINOPHILS # (AUTO) 0.3 X10'3 (0-0.9); EOSINOPHILS % (AUTO) 6.6 % (0-6); HEMATOCRIT 31.6 % (35.0-45.0); HEMOGLOBIN 10.7 g/dl (12.0-16.0); LYMPHOCYTES # (AUTO) 1.3 X10'3 (1.1-4.8); LYMPHOCYTES % (AUTO) 26.5 % (21-51); MEAN CORPUSCULAR HEMOGLOBIN 33.1 PG (27.0-31.0); MEAN CORPUSCULAR VOLUME 97.5 FL (78-98); MEAN PLATELET VOLUME 8.1 FL (7.4-10.4); MONOCYTES # (AUTO) 0.6 X10'3 (0-0.9); NEUTROPHILS # (AUTO) 2.6 X10'3 (1.8-7.7); NEUTROPHILS % (AUTO) 53.7 % (42-75); PLATELET COUNT 118 X10'3 (140-440); RED BLOOD COUNT 3.24 X10'6 (4.20-5.60); RED CELL DISTRIBUTION WIDTH 16.8 % (11.5-14.5); WHITE BLOOD COUNT 4.8 X10'3 (4.5-11.0)
[2017-09-12 05:49] LABS: ALANINE AMINOTRANSFERASE 52 U/L (12-78); ALBUMIN 2.5 G/DL (3.4-5.0); ALBUMIN/GLOBULIN RATIO 0.6 (1.1-1.5); ALKALINE PHOSPHATASE 112 IU/L (46-116); ANION GAP 7 (8-16); ASPARTATE AMINO TRANSFERASE 66 U/L (10-37); BILIRUBIN,TOTAL 1.2 MG/DL (0.1-1.0); BLOOD UREA NITROGEN 28 MG/DL (7-18); BUN/CREATININE RATIO 8.1 (6.6-38.0); CALCIUM 8.8 MG/DL (8.5-10.1); CHLORIDE 101 MMOL/L (99-107); CREATININE 3.44 MG/DL (0.40-0.90); GLUCOSE 117 MG/DL (70-104); MAGNESIUM 1.9 MG/DL (1.5-2.4); PHOSPHORUS 3.4 MG/DL (2.3-4.5); POTASSIUM 4.1 MMOL/L (3.5-5.1); SODIUM 138 MMOL/L (135-145); TOTAL PROTEIN 6.6 G/DL (6.4-8.2); eGFR 13 ML/MIN
[2017-09-12 07:00] VITALS: BP 129/57
[2017-09-12] MEDS: heparin, porcine 5000 units/ml vial SQ SCH ×2 (08:48→20:00)
[2017-09-12] MEDS: losartan 25mg tablet PO SCH (08:49)
[2017-09-12] MEDS: folic acid/vitamin B complex w/vitamin C 0.8mg tablet PO SCH (08:49)
[2017-09-12] MEDS: aspirin 81mg tablet.DR PO SCH (08:49)
[2017-09-12] MEDS: levoTHYROXINE 125mcg tablet PO SCH (08:49)
[2017-09-12] MEDS: pantoprazole 40mg Tablet.DR PO SCH (08:49)
[2017-09-12] MEDS: lactobacillus rhamnosus 10,000 MMU CELLS/CAPSULE PO SCH ×2 (08:49→19:39)
[2017-09-12] MEDS: gabapentin 100mg capsule PO SCH ×3 (08:49→19:40)
[2017-09-12] MEDS: traMADol 50MG tablet PO PRN ×2 (08:56→15:43)
[2017-09-12] MEDS: nystatin 15 GM powder TP SCH ×2 (08:56→20:42)
[2017-09-12] MEDS: insulin Lispro (HumaLOG) vial - multi-dose SQ SCH (09:00)
[2017-09-12 11:52] VITALS: BP 143/79
[2017-09-12] MEDS: HYDROcodone/acetaminophen 5mg/325mg tablet PO PRN ×2 (13:38→19:40)
[2017-09-12] MEDS: albuterol 2.5 MG/3 ML nebule NEB PRN (14:20)
[2017-09-12] MEDS ORDERED: phenylephrine/cocoa butter (Preparation H) suppository RC PRN (17:25)
[2017-09-12 19:00] VITALS: BP 97/69
[2017-09-12] MEDS: insulin glargine (Lantus) pen - multi-dose SQ SCH (21:40)
[2017-09-12] MEDS: diphenhydrAMINE 25mg capsule PO PRN (21:42)
[2017-09-13] VITALS: BP 112/63
[2017-09-13 05:27] LABS: BASOPHILS % (AUTO) 0.2 % (0-1); EOSINOPHILS # (AUTO) 0.3 X10'3 (0-0.9); EOSINOPHILS % (AUTO) 6.1 % (0-6); HEMATOCRIT 30.5 % (35.0-45.0); HEMOGLOBIN 10.3 g/dl (12.0-16.0); LYMPHOCYTES # (AUTO) 1.2 X10'3 (1.1-4.8); LYMPHOCYTES % (AUTO) 21.6 % (21-51); MEAN CORPUSCULAR HEMOGLOBIN 32.4 PG (27.0-31.0); MEAN CORPUSCULAR HGB CONC 33.7 % (33.0-36.5); MEAN CORPUSCULAR VOLUME 96.3 FL (78-98); MEAN PLATELET VOLUME 8.3 FL (7.4-10.4); MONOCYTES # (AUTO) 0.6 X10'3 (0-0.9); NEUTROPHILS # (AUTO) 3.3 X10'3 (1.8-7.7); NEUTROPHILS % (AUTO) 61.1 % (42-75); PLATELET COUNT 123 X10'3 (140-440); RED BLOOD COUNT 3.17 X10'6 (4.20-5.60); RED CELL DISTRIBUTION WIDTH 17.3 % (11.5-14.5); WHITE BLOOD COUNT 5.4 X10'3 (4.5-11.0)
[2017-09-13 05:46] LABS: ALANINE AMINOTRANSFERASE 50 U/L (12-78); ALBUMIN 2.4 G/DL (3.4-5.0); ALBUMIN/GLOBULIN RATIO 0.6 (1.1-1.5); ALKALINE PHOSPHATASE 116 IU/L (46-116); ANION GAP 8 (8-16); ASPARTATE AMINO TRANSFERASE 70 U/L (10-37); BILIRUBIN,TOTAL 1.3 MG/DL (0.1-1.0); BLOOD UREA NITROGEN 34 MG/DL (7-18); BUN/CREATININE RATIO 8.8 (6.6-38.0); CALCIUM 8.9 MG/DL (8.5-10.1); CHLORIDE 100 MMOL/L (99-107); CREATININE 3.87 MG/DL (0.40-0.90); GLUCOSE 138 MG/DL (70-104); MAGNESIUM 2.1 MG/DL (1.5-2.4); PHOSPHORUS 3.9 MG/DL (2.3-4.5); SODIUM 136 MMOL/L (135-145); TOTAL PROTEIN 6.7 G/DL (6.4-8.2); eGFR 11 ML/MIN
[2017-09-13 05:55] LABS: POTASSIUM 4.7 MMOL/L (3.5-5.1)
[2017-09-13] MEDS: gabapentin 100mg capsule PO SCH ×3 (07:47→20:11)
[2017-09-13] MEDS: folic acid/vitamin B complex w/vitamin C 0.8mg tablet PO SCH (07:47)
[2017-09-13] MEDS: levoTHYROXINE 125mcg tablet PO SCH (07:47)
[2017-09-13] MEDS: aspirin 81mg tablet.DR PO SCH (07:47)
[2017-09-13] MEDS: lactobacillus rhamnosus 10,000 MMU CELLS/CAPSULE PO SCH ×2 (07:47→20:11)
[2017-09-13] MEDS: pantoprazole 40mg Tablet.DR PO SCH (07:47)
[2017-09-13] MEDS: nystatin 15 GM powder TP SCH ×2 (07:52→20:12)
[2017-09-13] MEDS: heparin, porcine 5000 units/ml vial SQ SCH ×2 (07:52→20:00)
[2017-09-13 07:59] VITALS: BP 130/76
[2017-09-13] MEDS: losartan 25mg tablet PO SCH ×3 (08:00→14:08)
[2017-09-13] MEDS: traMADol 50MG tablet PO PRN ×2 (11:50→20:12)
[2017-09-13 14:00] VITALS: BP 168/86
[2017-09-13] MEDS ORDERED: HYDROmorphone inj. 0.5 MG/0.5 ML DISP.SYRIN IV PRN (17:20)
[2017-09-13] MEDS ORDERED: MIDAZolam 5mg/ml 2ml vial IV PRN (17:20)
[2017-09-13] MEDS ORDERED: HYDROmorphone 1 mg/ml syringe IV PRN (17:20)
[2017-09-13] MEDS: HYDROmorphone 2mg tablet PO PRN (18:17)
[2017-09-13] MEDS: diphenhydrAMINE 25mg capsule PO PRN (20:12)
[2017-09-14] MEDS: atropine sulfate 1% ophthalmic drops SL SCH ×2 (01:15→04:00)
[2017-09-14 01:47] VITALS: BP 162/69
[2017-09-14] MEDS: HYDROmorphone 2mg tablet PO PRN ×2 (02:28→10:13)
[2017-09-14 08:00] VITALS: BP 135/55
[2017-09-14] MEDS ORDERED: oxyCODONE 20 mg/ml concentrated oral syringe PO PRN (14:45)
[2017-09-14] MEDS: OXYcodone 10 MG/0.5 ML ORAL syringe PO PRN ×2 (15:37→22:40)
[2017-09-14 19:30] VITALS: BP 102/68
[2017-09-15] MEDS: OXYcodone 10 MG/0.5 ML ORAL syringe PO PRN ×3 (07:01→19:19)
[2017-09-15 12:54] VITALS: BP 120/72
[2017-09-15] MEDS ORDERED: mag hydrox/Alum hydrox/simeth 30ml oral suspension PO PRN (16:00)
[2017-09-15 19:00] VITALS: BP 143/86
[2017-09-15 19:15] VITALS: BP 127/64
[2017-09-16] MEDS: OXYcodone 10 MG/0.5 ML ORAL syringe PO PRN ×3 (03:56→18:57)
[2017-09-16 07:00] VITALS: BP 104/58
[2017-09-16 11:00] VITALS: BP 119/72
[2017-09-16 19:10] VITALS: BP 98/50
[2017-09-17] MEDS: OXYcodone 10 MG/0.5 ML ORAL syringe PO PRN ×5 (01:15→21:38)
[2017-09-17 07:00] VITALS: BP 125/73
[2017-09-17 18:00] VITALS: BP 121/48
[2017-09-18] MEDS: OXYcodone 10 MG/0.5 ML ORAL syringe PO PRN ×6 (00:41→22:43)
[2017-09-18 07:17] VITALS: BP 108/40
[2017-09-18 20:00] VITALS: BP 82/32
[2017-09-18 22:00] VITALS: BP 94/46
== END 2017-09-19 03:00 | disposition expired | DRG 871 ==
LOC: ER 09:35 → ED HOLD 13:36 → EDBEDREQ 17:05 → ICU 2S 18:35 → PCU 3S 09-01 09:02 → SUR 3N 09-07 17:29
PROVIDERS: ATTEND Internal Medicine
PROC: 02HV33Z Insertion of Infusion Device into Superior Vena Cava, Percutaneous Approach (ICD-10-PCS; 2017-08-31)
PROC: B548ZZA Ultrasonography of Superior Vena Cava, Guidance (ICD-10-PCS; 2017-08-31)
PROC: 5A1D70Z Performance of Urinary Filtration, Intermittent, Less than 6 Hours Per Day (ICD-10-PCS; principal; 2017-09-01)
PROC: 5A1D70Z Performance of Urinary Filtration, Intermittent, Less than 6 Hours Per Day (ICD-10-PCS; 2017-09-03)
PROC: 5A1D70Z Performance of Urinary Filtration, Intermittent, Less than 6 Hours Per Day (ICD-10-PCS; 2017-09-08)
PROC: 5A1D70Z Performance of Urinary Filtration, Intermittent, Less than 6 Hours Per Day (ICD-10-PCS; 2017-09-10)
DX: A41.9 Sepsis, unspecified organism (principal); G93.40 Encephalopathy, unspecified; E11.22 Type 2 diabetes mellitus with diabetic chronic kidney disease; E66.01 Morbid (severe) obesity due to excess calories; I12.0 Hypertensive chronic kidney disease with stage 5 chronic kidney disease or end stage renal disease; N18.6 End stage renal disease; Z68.43 Body mass index [BMI] 50.0-59.9, adult; B37.49 Other urogenital candidiasis; E78.00 Pure hypercholesterolemia, unspecified; K21.9 Gastro-esophageal reflux disease without esophagitis; R62.7 Adult failure to thrive; G89.29 Other chronic pain; Z60.2 Problems related to living alone; Z51.5 Encounter for palliative care; Z66 Do not resuscitate; Z99.2 Dependence on renal dialysis; Z90.49 Acquired absence of other specified parts of digestive tract; Z98.41 Cataract extraction status, right eye; Z98.42 Cataract extraction status, left eye; Z88.2 Allergy status to sulfonamides; Z88.1 Allergy status to other antibiotic agents; Z88.6 Allergy status to analgesic agent; Z91.018 Allergy to other foods; Z79.4 Long term (current) use of insulin
CPT/HCPCS: 36415; 36556; 36600; 70450; 71045; 80053; 80202; 81001; 82140; 82803; 82810; 82948; 83036; 83605; 83735; 83880; 84100; 84439; 84443; 84484; 85018; 85025; 85610; 85730; 87040; 87070; 87077; 87088; 93005; 94640; 94760; 97110; 97161; 97530; 99291; A4315; A4649; A6212; A6213; A6402; A6446; A6449; C9113; G0257; J0885; J1644; J1815; J2060; J2185; J2250; J2405; J3370; J3490; J7030; P9047; Q0163